=== PATIENT | female | born 1930 | race Caucasian/White ===

== ENCOUNTER 2019-02-09 13:53 | Inpatient (IN) ==
[2019-02-09] MEDS ORDERED: ASPIRIN PO ONE (14:25)
--- NOTE | 2019-02-09 15:00 | Diag Imaging Result Doc PS360 ---
CHEST-2 VIEWS - 02/09/2019 INDICATION: SOB CHF COMPARISON: 02/02/2019 FINDINGS: Stable left-sided pacemaker. Stable cardiomegaly and pulmonary vascular congestion. No infiltrates or edema. There are trace pleural effusions probably similar to prior. IMPRESSION: Cardiomegaly and pulmonary vascular congestion. Trace pleural effusions. Electronically signed by Chris Wu 02/09/2019 2:58 PM
[2019-02-09 15:12] LABS: BASO# 0.01 X1000 (0.0-0.2); BASO% 0.1 % (0.0-0.8); EOS# 0.15 X1000 (0.0-0.7); HEMATOCRIT 37.6 % (37.0-47.0); IMM GRAN# 0.03 X1000 (0.0-0.04); IMM GRAN% 0.4 % (0.0-0.5); LYMPH# 0.82 X1000 (1.2-3.4); MCH 27.8 PG (27-31); MCHC 29.3 g/dL (33-37); MCV 94.9 FL (81-99); MONO# 0.47 X1000 (0.11-0.59); MONO% 6.3 % (1.7-9.3); MPV 8.8 FL (7.4-10.4); NEUT# 5.97 X1000 (1.4-6.5); NEUT% 80.2 % (42.2-75.2); PLT 196 X1000 (130-400); RBC 3.96 XMIL (4.2-5.4); RDW 16.5 % (11.5-14.5); WBC 7.45 X1000 (4.8-10.8)
[2019-02-09 15:26] LABS: INR 1.23; PROTIME 16.2 Seconds (11.0-16.0); PTT 35.7 Seconds (22.3-41.8)
[2019-02-09 15:29] LABS: ALBUMIN 3.9 g/dL (3.5-5.0); CALCIUM 9.2 mg/dL (8.8-10.2); CREATININE 2.3 mg/dL (0.5-0.9); TOTAL BILIRUBIN 0.7 mg/dL (0.20-1.00); TOTAL PROTEIN 6.5 g/dL (6.3-8.3)
[2019-02-09 15:52] LABS: BE 4.7 mmoll (-3.0-3.0); BLOOD TYPE ARTERIAL; HCO3-(ACT) 28.3 mmoll (20.0-26.0); METHB 1.1 % (0.0-1.5); O2(CT) 13.1 mL/dL (15.0-23.0); SAMPLE BLOOD; SAO2 89.3 % (95.0-100.0); THB 10.9 g/dL (11.5-17.4); pH(98.6) 7.38 (7.35-7.45)
[2019-02-09 15:58] LABS: PCO2(98.6) 52 mmHg (35-45)
[2019-02-09 15:59] LABS: MODALITY ROOM AIR; O2HB 85.3 % (95.0-99.0); PO2(98.6) 49 mmHg (60-100)
--- NOTE | 2019-02-09 16:13 | PROVIDER DOCUMENTATION ---
This chart was entered by Lynette Bustamante Scribe, acting as scribe for Amisha Gutierrez CRNP. HPI-General Adult - General Chief Complaint: Shortness of Breath Stated Complaint: LOW O2 Time Seen by Provider: 02/09/19 14:28 Source: patient, family Allergies/Adverse Reactions: Patient Allergies Allergy/AdvReac Type Severity Reaction Status Date / Time No Known Allergies Allergy Verified 02/02/19 15:41 - History of Present Illness -Gen Adult Nature of Presenting Problems: 88 y/o female presents to ED with lethargy, weakness, and cough onset 24 hours ago. Family of pt reports she became more alert en route to ED. Pt denies any other symptoms. Family states pt has been less active since being diagnosed with rib fx last week. Pt is alert and oriented. Location of Pain/Injury: reports: none Pain Radiation: reports: no radiation Quality of Pain: reports: none Severity: reports: mild Onset/Duration: reports: 24 hours ago Timing: reports: still present Context/Activities at Onset: reports: none Modifying Factors: improves with: nothing Associated Symptoms: reports: cough, shortness of breath, weakness, other (lethargy). denies: dizziness, fever/chills Similar Symptoms Previously?: No Recently seen or treated by another doctor?: No Review of Systems - Adult - REVIEW OF SYSTEMS - ADULT Constitutional: reports: other (lethargy). denies: chills, fever Eyes: reports: no symptoms reported Ears, Nose, Mouth & Throat: reports: no symptoms reported Cardiovascular: denies: chest pain, palpitations Respiratory: reports: cough, shortness of breath. denies: wheezing Gastrointestinal: reports: no symptoms reported Genitourinary: reports: no symptoms reported Musculoskeletal: reports: no symptoms reported Integumentary: reports: no symptoms reported Neurological: reports: other (weakness). denies: dizziness/vertigo, seizure Psychiatric: reports: no symptoms reported Endocrine: reports: no symptoms reported Hematologic/Lymphatic: reports: no symptoms reported Allergic/Immunologic: reports: no symptoms reported All Other Systems: Reviewed and Negative Past History - Adult - PAST MEDICAL HISTORY-ADULT Review of Records: reports: Old Records Reviewed, Nursing Assessment Review, Medications Reviewed Major Childhood Illnesses: reports: denies history Cardiovascular: reports: CAD, CHF, HTN, hyperlipidemia, pacemaker Respiratory: reports: COPD Gastrointestinal: reports: denies history Obstetrical/Gynecological: reports: denies history Genitourinary: reports: denies history Musculoskeletal: reports: denies history Neurological: reports: denies history, TIA Psychiatric: reports: anxiety Endocrine/Immune: reports: denies history Other Conditions: reports: denies history - PRIOR SURGERIES/PROCEDURES Surgical/Procedure History: reports: cholecystectomy, cardiac stent, pacemaker, hysterectomy, hernia repair, orthopedic (extremity) (L hand), joint replacement (knee) - IMMUNIZATION STATUS Childhood Immunizations: See Nurse Assessment Flu Vaccine: See Nurse Assessment - FAMILY HISTORY Family History: reviewed, not pertinent - SOCIAL HISTORY Smoking: non-smoker Substance Use: none/never Alcohol Use Frequency: never Living Situation: family Physical Exam-General - PHYSICAL EXAM-ADULT Initial Vital Signs Reviewed: Yes - CONSTITUTIONAL General Appearance: alert, no apparent distress - EYES Eyes: PERRL/EOMI, pink conjunctivae - HEAD, EARS, NOSE, MOUTH & THROAT HENMT: normocephalic/atraumatic, moist mucous membranes, normal ENT inspection. negative: angioedema - NECK Neck: full range of motion, supple, normal inspection - RESPIRATORY Respiratory: normal breath sounds, no respiratory distress, no accessory muscle use, crackles (bilaterally). negative: stridor, wheezing - CARDIOVASCULAR Cardiovascular: normal peripheral pulses, regular rate, rhythm - GASTROINTESTINAL (ABDOMEN) Abdominal Exam: non tender, soft - LYMPHATIC Lymphatic: no adenopathy - MUSCULOSKELETAL Back Exam: normal inspection, no vertebral tenderness Extremity: normal range of motion, non-tender, normal inspection, normal capillary refill, pedal edema (2+ bilaterally). negative: deformity, erythema - SKIN Integumentary: normal color, warm/dry, swelling (2 + pitting edema of bilateral lower extremities) - NEUROLOGIC Neurologic: grossly normal, no motor/sensory deficits - PSYCHIATRIC Psych/Mental Status: normal mood/affect, normal thought content, normal thought process, oriented x 3 Progress - PLAN OF CARE/RESULTS Progress/Plan/Lab Results: Vital Signs - 8 hr 02/09/19 14:17 Temperature 98 F Pulse Rate 78 Respiratory Rate 20 Blood Pressure 130/61 O2 Sat by Pulse Oximetry 92 L Orders Category Date Time Status Cardiac Monitoring DIRECTED Care 02/09/19 14:25 Active Oxygen Therapy- ED Nursing DIRECTED Care 02/09/19 14:25 Active Saline Loc NOW Care 02/09/19 14:25 Active CHEST-2 VIEWS [RAD] Stat Exams 02/09/19 14:25 Ordered CBC WITH ELECTRONIC DIFF [HEME] Stat Lab 02/09/19 14:25 Uncollected CK PROFILE [SP CHEM] Stat Lab 02/09/19 14:25 Uncollected COMPREHENSIVE METABOLIC PANEL [CHEM] Stat Lab 02/09/19 14:25 Uncollected PRO B-NATRIURETIC PEPTIDE Stat Lab 02/09/19 14:25 Uncollected PROTIME WITH INR [COAG] Stat Lab 02/09/19 14:25 Uncollected PTT [COAG] Stat Lab 02/09/19 14:25 Uncollected TROPONIN T Stat Lab 02/09/19 14:25 Uncollected Aspirin Med 02/09/19 14:25 Discontinued 325 mg PO NOW ONE CP/SOB/Palp >45 yrs of Age Stat Oth 02/09/19 14:25 Ordered EKG [EKG] Stat Ther 02/09/19 14:25 Ordered Result Diagrams: 02/09/19 14:58 02/09/19 14:58 - REASSESSMENT Reassessment #1 Time Reassessed: 16:07 (discussed results with pt and family. Family member now stating that pt is on home O2 at 2L, denied O2 use during initial exam. Made aware of need for admission) Reassessment #2 Time Reassessed: 16:12 (discussed pt with Dr Cosby suggests admission and lasix 40mg IV.) - XRAY 1 XRAY Study: Chest Impression: See EMR Report ([facility] - [address], [address], [place] [address] [facility] - [address] [place] [address] Department of Imaging Patient: TERELL CHILDRESS RAD Date: 02/09/19MR#: [id number] : 1930DM Status: PRE ERAcct#: [id number] Age/Sex: 88/FRoom/Bed: Loc: P.ED Ordering Physician: Ollie Cosby MD Family Physician: Radha Luna MD Reason for Procedure: SOB CHF Signed CHEST-2 VIEWS - 02/09/2019 INDICATION: SOB CHF COMPARISON: 02/02/2019 FINDINGS: Stable left-sided pacemaker. Stable cardiomegaly and pulmonary vascular congestion. No infiltrates or edema. There are trace pleural effusions probably similar to prior. IMPRESSION: Cardiomegaly and pulmonary vascular congestion. Trace pleural effusions. Electronically signed by Chris Wu 02/09/2019 2:58 PM 02/09/19 1458 Interpreting Physician: Chris Wu MD Dictated Date/Time: 02/09/19 1458 cc: Ollie Cosby MD; Radha Luna MD) - CONSULTS/PCP/HOSPITALIST Notification #1 *Consult/PCP/Hospitalist*: Dr Renae Time Discussed: 16:04 Consult Disposition: Admit Departure - Departure Date of Disposition Decision: 02/09/19 Time of Disposition Decision: 16:09 DIAGNOSIS: SOB (shortness of breath), Hypoxia, Acute kidney injury Congestive heart failure Qualifiers: Heart failure type: unspecified Heart failure chronicity: acute on chronic Qualified Code(s): I50.9 - Heart failure, unspecified Disposition: ADMITTED INPATIENT 09 Certified Medical Emergency: Emergent Condition: Fair Referrals and Follow-Ups: Radha Luna MD [Primary Care Provider] - - Critical Care Note This patient required my direct & personal management of CC.: No Attestation - Physician/ MARQUES Attestation Patient care was provided by Advanced Practice Provider:: Yes Advanced Practice Provider:: Amisha Gutierrez Advanced Practice Provider documentation review:: The Mid-level provider documentation, treatment plan and medical decision making was reviewed by the physician who agrees with all treatment and medical decision making by the MLP. The physician spent face to face time with patient:: No Advanced Practice Provider documentation review:: Supervising physician onsite and consulted in the evaluation and care of this patient. The physician did not have a face to face encounter with the patient. This chart was documented by the indicated scribe, (Lynette Bustamante, Jorge) and accurately reflects the services I performed and decisions made by me, Amisha Gutierrez CRNP, as attested by the provider's signature.
[2019-02-09] MEDS: LASIX IV ONE (16:16)
[2019-02-09] MEDS ORDERED: NS 1,000 ML IV SCH (17:30)
[2019-02-09] MEDS ORDERED: FLU VACCINE IM ONE (17:54)
--- NOTE | 2019-02-09 18:24 | HISTORY AND PHYSICAL ---
CHIEF COMPLAINT: Shortness of breath. HISTORY OF PRESENT ILLNESS: The patient is a very pleasant 88-year-old female, who actually was seen in the ER approximately a week ago after having fallen. She had a rib fracture at that time. Since going home the family notes that she has been much less active. Normally she has a mildly productive cough each morning with whitish sputum. Over the last 7 days she has had almost no cough. She has not been breathing deeply. Family also notes that she has not really been eating or drinking as well. ALLERGIES: No known drug allergies. MEDICATIONS: I do not have an accurate medication list currently. She has a history of being on cholesterol medicine, diltiazem, lisinopril, pain medication and Coumadin. PAST MEDICAL HISTORY: Significant for known coronary artery disease; atrial fibrillation; bradycardia, status post pacemaker; chronic kidney disease stage 3; obstructive sleep apnea; COPD; hyperlipidemia; chronic pain syndrome; morbid obesity; chronic systolic congestive heart failure; hypertension. PAST SURGICAL HISTORY: She has had a hysterectomy, hernia repair, pacemaker placement, bilateral knee surgeries and back surgery. FAMILY HISTORY: Positive for diabetes and hyperlipidemia. SOCIAL HISTORY: The patient lives at home. She is cared for by her family. She does not currently smoke or drink. REVIEW OF SYSTEMS: As noted above. Positive increased work of breathing, shortness of breath. She has had dyspnea on exertion. She had a syncopal episode approximately a week ago, causing her to fall. She does have some mild memory issues and hard of hearing. Denies any chest pains other than over her rib. Denies fevers, chills, dysuria, frequency, urgency, hesitancy or polyuria. Denies skin rashes, weight loss or weight gain. PHYSICAL EXAMINATION: VITAL SIGNS: Temperature 98 degrees, pulse 72, respiratory rate 17, BP 139/60, saturation 97% on 2 L. GENERAL: The patient is very pleasant. She is lying in the bed with the head elevated approximately 30 degrees. HEENT: Normocephalic. NECK: Supple. CARDIOVASCULAR: Irregular rhythm, rate controlled. CHEST: Decreased breath sounds bilaterally. There are no current crackles or wheezing appreciable. ABDOMEN: Soft, nondistended. EXTREMITIES: Moves all extremities. No edema. NEUROLOGIC: No changes. She is awake, alert, oriented. LABORATORY DATA: CBC normal. BUN 50, creatinine 2.3. BNP 3243. ASSESSMENT: 1. Acute congestive heart failure. BNP is elevated at 3000. Most recent on chart was 1500. 2. Ooaxs-jz-dliqlvz kidney disease secondary to volume depletion. Creatinine is elevated to 2.3 with the most recent being 1.2, seven days ago. 3. Volume depletion. BUN is elevated at 50 with the most recent being 29, seven days ago. 4. Chronic pain. 5. Congestive heart failure, systolic with exacerbation. 6. Hypertension. 7. Atrial fibrillation, currently rate-controlled. PLAN: We are going to continue the patient in the hospital. We are going to place her on IV fluids, as she does appear to be volume-depleted with an elevated BUN and creatinine; however, she also has pulmonary congestion. We are going to use Lasix and follow. We will restart her home medications once available. cc: Balne Garcia MD
--- NOTE | 2019-02-09 20:56 | EKG Report ---
Test Performed on : 02/09/2019 7:03:29 PM Test Reason : CHF SOB Blood Pressure : / mmHG Vent. Rate : 067 BPM Atrial Rate : 250 BPM P-R Int : 000 ms QRS Dur : 098 ms QT Int : 414 ms P-R-T Axes : 000 062 030 degrees QTc Int : 437 ms Atrial fibrillation. with occasional ventricular-paced complexes Low voltage QRS Cannot rule out Anterior infarct , age undetermined Abnormal ECG When compared with ECG of 08-AUG-2015 10:46, Electronic ventricular pacemaker has replaced Atrial fibrillation. Confirmed by Ollie Cosby MD ([id number]) on 02/21/2019 1:51:40 AM
[2019-02-10] MEDS ORDERED: NORCO-10 PO PRN (00:48)
[2019-02-10] MEDS ORDERED: LASIX IV SCH (06:00)
[2019-02-10] MEDS: LASIX IV ONE (06:31)
[2019-02-10 06:44] LABS: URINE SOURCE CLEAN CATCH
[2019-02-10 06:48] LABS: ALBUMIN 3.7 g/dL (3.5-5.0); CALCIUM 9.2 mg/dL (8.8-10.2); CREATININE 1.8 mg/dL (0.5-0.9); MAGNESIUM 2.2 mg/dL (1.5-2.7); POTASSIUM 4.2 mmol/L (3.5-5.1); TOTAL BILIRUBIN 0.7 mg/dL (0.20-1.00); TOTAL PROTEIN 6.4 g/dL (6.3-8.3)
[2019-02-10 07:47] LABS: BILIRUBIN URINE NEGATIVE (NEGATIVE); BLOOD URINE NEGATIVE (NEGATIVE); COLOR YELLOW; GLUCOSE URINE NEGATIVE (NEGATIVE); KETONE URINE NEGATIVE (NEGATIVE); LEUKOCYTES URINE NEGATIVE (NEGATIVE); NITRITE URINE NEGATIVE (NEGATIVE); PROTEIN URINE NEGATIVE (NEGATIVE); SP GRAVITY URINE 1.009; TURBIDITY URINE CLEAR (CLEAR); UR EPITHELIAL CELLS <10 /HPF (<10); URINE BACTERIA NEGATIVE /HPF; URINE RBC <10 /HPF (<10); URINE WBC <10 /HPF (<10); UROBILINOGEN URINE NORMAL (NORMAL)
--- NOTE | 2019-02-10 08:36 | Diag Imaging Result Doc PS360 ---
CHEST-PORTABLE - 02/10/2019 INDICATION: chf COMPARISON: 02/09/2019 FINDINGS: Lung volumes are critically low. There is nonspecific central atelectasis. Otherwise no new infiltrates. Stable cardiomegaly. IMPRESSION: Critically low lung volumes. Electronically signed by Chris Wu 02/10/2019 8:34 AM
[2019-02-10] MEDS ORDERED: NEURONTIN PO PRN (09:02)
[2019-02-10] MEDS: PERCOCET-10 PO PRN ×2 (10:11→22:39)
[2019-02-10] MEDS ORDERED: NS 1,000 ML IV SCH (11:00)
--- NOTE | 2019-02-10 12:54 | PROGRESS NOTE ---
DATE: 02/10/2019 SUBJECTIVE: Patient notes that she still feels terrible. Denies any fevers or chills. Denies chest pain or palpitations. PHYSICAL EXAMINATION: Temperature 97, pulse 63, respiratory rate 18, BP 125/66. General: Patient is in no distress. She is awake, alert. She is pleasant. HEENT: Normocephalic. Neck: Supple. Cardiovascular: Regular rate. Chest: Decreased but equal breath sounds. Minimal crackles. Abdomen: Soft. Extremities: Moves all extremities. ASSESSMENT: 1. Acute on chronic renal failure. Creatinine was 2.3. Baseline is around 1.2. She currently is down to 1.8. 2. Volume depletion, improving. 3. Congestive heart failure, systolic, with exacerbation, improving. BNP is also down. 4. Hypertension. 5. Chronic atrial fibrillation, rate controlled. PLAN: We are going to continue the patient in the hospital. Continue Lasix with intermittent IV fluids. Continue to encourage oral intake and we will follow. cc: Blane Garcia MD
[2019-02-10] MEDS: XANAX PO SCH ×2 (14:27→17:32)
[2019-02-10] MEDS ORDERED: NS 500 ML IV SCH (15:00)
[2019-02-10] MEDS ORDERED: COUMADIN PO SCH (20:00)
[2019-02-10] MEDS ORDERED: LIPITOR PO SCH (21:00)
[2019-02-11 06:08] LABS: INR 1.29; PROTIME 16.8 Seconds (11.0-16.0)
[2019-02-11 06:26] LABS: ALBUMIN 3.4 g/dL (3.5-5.0); CALCIUM 9.1 mg/dL (8.8-10.2); CREATININE 1.4 mg/dL (0.5-0.9); POTASSIUM 4.1 mmol/L (3.5-5.1); TOTAL BILIRUBIN 0.7 mg/dL (0.20-1.00)
--- NOTE | 2019-02-11 07:48 | ECHO REPORT ---
ORDER DATE: 02/10/2019 INTERPRETING PHYSICIAN: Dr. David REQUESTING PHYSICIAN: CLINICAL INDICATIONS: This is an 88-year-old female with CHF. The patient is in atrial fibrillation. Optison was added to optimize visualization of endocardium. M-MODE MEASUREMENTS: Right ventricle: cm. Left ventricle end diastole: 4.2 cm. Left ventricle end systole: 2.4 cm. Posterior wall: 1.2 cm. Interventricular septum: 1.2 cm. Left atrium: 4.3 cm. Aortic root: 2.8 cm. SUMMARY OF 2-DIMENSIONAL IMAGIN. Left ventricular function appears to be mildly decreased in the range of 50% to 55%. The impairment appears to be global. 2. The left atrium is significantly enlarged with an index of 63 mL per m sq of body surface area. 3. Right ventricle appears to be moderately to significantly enlarged. 4. A pacemaker/defibrillator lead is noted within the right ventricle. 5. The right atrium is also moderately enlarged. 6. There is moderately severe degree of tricuspid regurgitation with a pulmonary systolic pressure estimated at 52 mmHg. 7. Mitral valve shows normal opening. Color flow mapping indicates a moderate degree of regurgitation. 8. The pulse wave Doppler of mitral inflow shows a single filling wave. 9. The patient is in atrial fibrillation. 10.The velocity of the mitral annulus is normal. 11.The pulmonary venous flow shows predominance of a diastolic component. 12.Aortic valve shows some sclerosis of the cusps without stenosis. Color flow mapping is unremarkable. 13.Pulmonic valve is unremarkable. 14.There is no pericardial effusion, mass or thrombus. Clinical correlation is recommended. cc: Chase David MD
[2019-02-11] MEDS ORDERED: CARDIZEM CD PO SCH (09:00)
[2019-02-11] MEDS ORDERED: BUSPAR PO SCH (09:00)
[2019-02-11] MEDS ORDERED: CYMBALTA PO SCH (09:00)
[2019-02-11] MEDS ORDERED: LASIX IV SCH (09:00)
[2019-02-11] MEDS ORDERED: ZYLOPRIM PO SCH (09:00)
[2019-02-11] MEDS: XANAX PO SCH ×2 (09:05→13:18)
[2019-02-11 09:38] LABS: ALLEN TEST YES
[2019-02-11 11:53] VITALS: BP 160/87
--- NOTE | 2019-02-11 12:13 | DISCHARGE SUMMARY ---
ADMISSION DATE: 02/09/2019 DISCHARGE DATE: 02/11/2019 PRIMARY CARE PHYSICIAN: Radha Luna MD ADMISSION DIAGNOSES: 1. Acute congestive heart failure. 2. Acute on chronic kidney disease secondary to volume depletion. 3. Volume depletion. 4. Chronic pain. 5. Congestive heart failure, systolic with exacerbation. 6. Hypertension. 7. Atrial fibrillation rate controlled. DISCHARGE DIAGNOSES: 1. Acute on chronic renal failure improved. 2. Congestive heart failure, systolic with exacerbation improved. 3. Hypertension. 4. Chronic atrial fibrillation, rate controlled summary. SUMMARY OF FINDINGS: This is an 88-year-old female who presented to the emergency room previously a week before this admission after having a fall and had a rib fracture at that time. She has been less active since that time according to family and has had a mild productive cough each morning with white sputum. Over the last 7 days, she has had almost no cough. She has not been breathing deeply and not been eating and drinking well. She was found to have a creatinine of 2.3 and her previous 7 days prior was 1.2. Her BNP was elevated at 3000, previously was 1500, so she was admitted. Placed on IV diuresis, restarted her home medications. We did give her some gentle hydration. Her creatinine has improved down to 1.4, now, so it is felt that she can safely be discharged home today with no changes in medication. DISCHARGE MEDICATIONS: We will continue her home medications of allopurinol 300 mg p.o. daily, alprazolam 0.25 mg p.o. t.i.d., atorvastatin 40 mg p.o. at bedtime, buspirone 10 mg p.o. daily, diltiazem 120 mg p.o. daily, duloxetine 40 mg p.o. daily, gabapentin 300 mg p.o. t.i.d., oxycodone 10, 1 p.o. q.8 hours p.r.n., Lasix 40 mg p.o. b.i.d., spironolactone 25 mg p.o. q.12 hours p.r.n., and Coumadin 2 mg on Monday, Monday, , Monday and 4 mg on Monday, Monday, Monday. FOLLOWUP: She will need to follow up with her primary care physician in the next 1 to 2 weeks and call their office for an appointment. TIME SPENT AT DISCHARGE: 35-minute discharge. Dictated by EDWIN Kunz for Blane Garcia MD cc: MD Yesi Berman CRNP Gregory S. Cheatham, MD
[2019-02-11] MEDS: PERCOCET-10 PO PRN (13:17)
[2019-02-11] MEDS ORDERED: COUMADIN PO SCH (20:00)
--- NOTE | 2019-02-12 09:08 | DISCHARGE SUMMARY ---
ADMISSION DATE: 02/09/2019 DISCHARGE DATE: 02/11/2019 HISTORY/HOSPITAL COURSE: The patient was admitted to the hospital with acute congestive heart failure exacerbation with a BNP at 1500, as well as acute on chronic kidney disease. Creatinine was 2.3. It has decreased to 1.4. She was admitted after having been seen 1 week ago with rib fractures. Apparently, had gone home and had been sitting, not taking deep breaths nor drinking well. She was noted to be in acute renal failure, was felt to be volume depleted overall, although she also had an increased amount all vascular congestion in her lungs. This was secondary to her not taking deep breaths due to the pain. She was admitted to the hospital, was given Lasix to jump start her kidneys, as well as IV fluids for her volume depletion. Thankfully, she continued to improve. On discharge, she is awake, alert. She is in no distress. Overall, her symptoms have improved. Creatinine has improved. Breathing has improved. BNP dropped from 3243 to 2770. DISPOSITION: She will be discharged home. FOLLOWUP: She will follow up outpatient with primary care. cc: Blane Garcia MD MTDD
== END 2019-02-11 13:38 | disposition home or self-care (01) ==
LOC: P.ED 13:53 → P.MEDSURG 16:45
PROVIDERS: ATTEND Family Medicine

== ENCOUNTER 2019-04-08 21:13 | Inpatient (IN) ==
[2019-04-08 22:14] LABS: ALLEN TEST YES; BE 14.9 mmoll (-3.0-3.0); BLOOD TYPE ARTERIAL; HCO3-(ACT) 36.4 mmoll (20.0-26.0); METHB 1.1 % (0.0-1.5); O2(CT) 14.8 mL/dL (15.0-23.0); O2HB 91.5 % (95.0-99.0); PO2(98.6) 63 mmHg (60-100); SAMPLE BLOOD; SAO2 94.7 % (95.0-100.0); THB 11.5 g/dL (11.5-17.4); pH(98.6) 7.43 (7.35-7.45)
[2019-04-08 22:17] LABS: PCO2(98.6) 63 mmHg (35-45)
[2019-04-08 22:18] LABS: MODALITY CANNULA
[2019-04-08 22:30] LABS: BASO# 0.02 X1000 (0.0-0.2); BASO% 0.3 % (0.0-0.8); EOS# 0.13 X1000 (0.0-0.7); EOS% 1.7 % (0.0-10.0); HEMATOCRIT 39.2 % (37.0-47.0); HEMOGLOBIN 11.2 g/dL (12.0-16.0); IMM GRAN# 0.08 X1000 (0.0-0.04); LYMPH# 1.21 X1000 (1.2-3.4); LYMPH% 15.8 % (20.5-51.1); MCH 28.2 PG (27-31); MCHC 28.6 g/dL (33-37); MCV 98.7 FL (81-99); MONO# 0.58 X1000 (0.11-0.59); MONO% 7.6 % (1.7-9.3); MPV 9.6 FL (7.4-10.4); NEUT# 5.64 X1000 (1.4-6.5); NEUT% 73.6 % (42.2-75.2); PLT 169 X1000 (130-400); RBC 3.97 XMIL (4.2-5.4); RDW 17.6 % (11.5-14.5); WBC 7.66 X1000 (4.8-10.8)
[2019-04-08 22:50] LABS: ALB/GLOB RATIO 1.3; ALBUMIN 3.5 g/dL (3.5-5.0); CALCIUM 9.7 mg/dL (8.8-10.2); CREATININE 1.4 mg/dL (0.5-0.9); POTASSIUM 4.5 mmol/L (3.5-5.1); TOTAL BILIRUBIN 0.93 mg/dL (0.20-1.00); TOTAL PROTEIN 6.1 g/dL (6.3-8.3)
[2019-04-08] MEDS ORDERED: LASIX IV ONE (23:53)
--- NOTE | 2019-04-09 00:10 | PROVIDER DOCUMENTATION ---
This chart was entered by Alia Cruz Scribe, acting as scribe for Popeye Jasmine MD. HPI-General Adult - General Chief Complaint: SEPSIS ALERT Stated Complaint: RESP DISTRESS Time Seen by Provider: 04/08/19 22:23 Source: patient Allergies/Adverse Reactions: Patient Allergies Allergy/AdvReac Type Severity Reaction Status Date / Time No Known Allergies Allergy Verified 04/09/19 02:17 Home Medications: Home Medication List Medication Instructions Recorded Confirmed Last Taken Type Allopurinol [Zyloprim] 300 mg PO DAILY 02/09/19 04/09/19 Unknown History Alprazolam 0.25 mg PO TID 02/09/19 04/09/19 Unknown History Diltiazem HCl [Cartia Xt] 120 mg PO DAILY 02/09/19 04/09/19 Unknown History Duloxetine HCl 40 mg PO DAILY 02/09/19 04/09/19 Unknown History Furosemide [Lasix] 40 mg PO BID 02/09/19 04/09/19 Unknown History Gabapentin 300 mg PO BID 02/09/19 04/09/19 Unknown History Oxycodone HCl/Acetaminophen 10 - 325 mg PO Q6H PRN PRN 02/09/19 04/09/19 Unknown History [Oxycodone-Acetaminophen 10-325] Warfarin [Coumadin] 4 mg PO DAILY 02/10/19 04/09/19 Unknown History Aspirin [Aspir-Low] 81 mg PO DAILY 04/08/19 04/09/19 Unknown History Atorvastatin Calcium [Lipitor] 40 mg PO DAILY 04/08/19 04/09/19 Unknown History Digoxin 125 mcg PO ORDERED 04/08/19 04/09/19 Unknown History - History of Present Illness -Gen Adult Nature of Presenting Problems: pt is a 88 yr old female presenting via EMS from home, pt family reports pt became altered and combative this evening. EMS reports upon their arrival pt was very combative, striking at them and once in ambulance pt was striking the stroud/cabinets. pt was placed in restraints to protect her. pt was not wearing her home oxygen upon their arrival, Sp02 was 80%, , pt placed on 6lpm o2 via NC and Sp02 improved to 96%, pt returned to normal mental status and was no longer combative. pt now alert. family reports pt hx of COPD was admitted last week at [facility] for same, discharged on 04/05/19 Location of Pain/Injury: reports: none Quality of Pain: reports: none Severity: reports: moderate Onset/Duration: reports: this afternoon Timing: reports: improving Context/Activities at Onset: reports: rest Modifying Factors: improves with: other (oxygen improved symptoms) Associated Symptoms: reports: shortness of breath, other (AMS, combative). denies: fever/chills Similar Symptoms Previously?: Yes Recently seen or treated by another doctor?: Yes Review of Systems - Adult - REVIEW OF SYSTEMS - ADULT Constitutional: reports: abelardo. denies: chills, fever Eyes: reports: no symptoms reported Ears, Nose, Mouth & Throat: reports: no symptoms reported Cardiovascular: denies: chest pain, palpitations, syncope Respiratory: reports: cough, shortness of breath, wheezing Gastrointestinal: denies: abdominal pain, diarrhea, nausea, vomiting Genitourinary: reports: no symptoms reported Musculoskeletal: reports: muscle weakness Integumentary: reports: no symptoms reported Neurological: reports: other (AMS, combative) Psychiatric: reports: no symptoms reported Endocrine: reports: no symptoms reported Hematologic/Lymphatic: reports: no symptoms reported Allergic/Immunologic: reports: no symptoms reported All Other Systems: Reviewed and Negative Past History - Adult - PAST MEDICAL HISTORY-ADULT Review of Records: reports: Old Records Reviewed, Nursing Assessment Review, Medications Reviewed, Social history reviewed & non-contributory. Major Childhood Illnesses: reports: denies history Cardiovascular: reports: CAD, CHF, HTN Respiratory: reports: denies history Gastrointestinal: reports: denies history Obstetrical/Gynecological: reports: denies history Genitourinary: reports: denies history Musculoskeletal: reports: denies history Neurological: reports: denies history, TIA Psychiatric: reports: denies history Endocrine/Immune: reports: denies history Other Conditions: reports: denies history - PRIOR SURGERIES/PROCEDURES Surgical/Procedure History: reports: hysterectomy, hernia repair - IMMUNIZATION STATUS Childhood Immunizations: See Nurse Assessment Flu Vaccine: See Nurse Assessment - FAMILY HISTORY Family History: reviewed, not pertinent - SOCIAL HISTORY Smoking: non-smoker Substance Use: none/never Living Situation: family Physical Exam-General - PHYSICAL EXAM-ADULT Initial Vital Signs Reviewed: Yes - CONSTITUTIONAL General Appearance: no apparent distress, obese - EYES Eyes: PERRL/EOMI - HEAD, EARS, NOSE, MOUTH & THROAT HENMT: normocephalic/atraumatic, moist mucous membranes - NECK Neck: non-tender, full range of motion, supple, normal inspection - RESPIRATORY Respiratory: no respiratory distress, no accessory muscle use, rales (basilar rales) - CARDIOVASCULAR Cardiovascular: normal peripheral pulses, regular rate, rhythm - GASTROINTESTINAL (ABDOMEN) Abdominal Exam: non tender, soft - LYMPHATIC Lymphatic: no adenopathy - MUSCULOSKELETAL Back Exam: normal inspection Extremity: normal range of motion, non-tender, pedal edema (3+ pretibial/ankle pitting edema) - SKIN Integumentary: normal color, normal turgor, warm/dry - NEUROLOGIC Neurologic: grossly normal, no motor/sensory deficits Progress - PLAN OF CARE/RESULTS Progress/Plan/Lab Results: Vital Signs - 8 hr 04/08/19 21:46 Temperature 98.7 F Pulse Rate 64 Respiratory Rate 22 Blood Pressure 140/63 O2 Sat by Pulse Oximetry 93 L Laboratory Results - last 24 hr 04/08/19 04/08/19 04/08/19 22:10 22:10 22:10 WBC RBC Hgb Hct MCV MCH MCHC RDW Std Deviation Plt Count MPV Immature Gran % (Auto) Neut % (Auto) Lymph % (Auto) [place] % (Auto) Eos % (Auto) Baso % (Auto) Immature Gran # (Auto) Neut # (Auto) Lymph # (Auto) [place] # (Auto) Eos # (Auto) Baso # (Auto) Specimen Type ARTERIAL Sample Site R RADIAL pH 7.43 pCO2 63 H* pO2 63 HCO3 36.4 H Base Excess 14.9 H Oxyhemoglobin 91.5 L ABG O2 Sat (Calculated) 14.8 L ABG O2 Saturation 94.7 L ABG Carboxyhemoglobin 2.30 ABG Methemoglobin 1.1 Fredy Test YES A-a O2 Difference 58.0 Total Hemoglobin 11.5 Lactate 1.30 Liter Flow 2.0 Blood Gas Modality CANNULA FiO2 % 28.0 Sodium 138 Potassium 4.5 Chloride 92 L Carbon Dioxide 38 H Anion Gap 8 BUN 30 H Creatinine 1.4 H Estimated GFR/1.73 m2 36 BUN/Creatinine Ratio 21 Glucose 161 H Calculated Osmolality 285 Calcium 9.7 Total Bilirubin 0.93 AST 25 ALT 15 Alkaline Phosphatase 105 H Creatine Kinase 32 Troponin T High Sens [id number]-[id number] Pept Total Protein 6.1 L Albumin 3.5 Globulin 2.6 Albumin/Globulin Ratio 1.3 Plasma Lactate 1.6 04/08/19 04/08/19 04/08/19 22:10 22:10 22:10 WBC 7.66 RBC 3.97 L Hgb 11.2 L Hct 39.2 MCV 98.7 MCH 28.2 MCHC 28.6 L RDW Std Deviation 17.6 H Plt Count 169 MPV 9.6 Immature Gran % (Auto) 1.0 H Neut % (Auto) 73.6 Lymph % (Auto) 15.8 L [place] % (Auto) 7.6 Eos % (Auto) 1.7 Baso % (Auto) 0.3 Immature Gran # (Auto) 0.08 H Neut # (Auto) 5.64 Lymph # (Auto) 1.21 [place] # (Auto) 0.58 Eos # (Auto) 0.13 Baso # (Auto) 0.02 Specimen Type Sample Site pH pCO2 pO2 HCO3 Base Excess Oxyhemoglobin ABG O2 Sat (Calculated) ABG O2 Saturation ABG Carboxyhemoglobin ABG Methemoglobin Fredy Test A-a O2 Difference Total Hemoglobin Lactate Liter Flow Blood Gas Modality FiO2 % Sodium Potassium Chloride Carbon Dioxide Anion Gap BUN Creatinine Estimated GFR/1.73 m2 BUN/Creatinine Ratio Glucose Calculated Osmolality Calcium Total Bilirubin AST ALT Alkaline Phosphatase Creatine Kinase Troponin T High Sens 72 H Cng-U-Ycrhihxfbox Pept 9860 H Total Protein Albumin Globulin Albumin/Globulin Ratio Plasma Lactate Orders Category Date Time Status Cardiac Monitoring NOW Care 04/08/19 22:43 Active IV Insertion NOW Care 04/08/19 22:43 Completed NEWS Score >or=5:Order NEWS Bundle S.O. NOW Care 04/08/19 22:42 Active Notify Provider of NEWS Score NOW Care 04/08/19 22:43 Active Saline Loc NOW Care 04/08/19 21:30 Active CHEST-PORTABLE [RAD] Stat Exams 04/08/19 21:30 Taken ABG [RESP] Routine Lab 04/08/19 22:10 Completed BLOOD CULTURE [BLDCUL] Stat Lab 04/08/19 23:12 Ordered CBC WITH DIFF [HEME] Stat Lab 04/08/19 22:10 Completed CBC WITH DIFF [HEME] Stat Lab 04/08/19 23:12 Ordered CK PROFILE [SP CHEM] Stat Lab 04/08/19 22:10 Completed COMPREHENSIVE METABOLIC PANEL [CHEM] Stat Lab 02/24/20 22:10 Completed LACTATE, PLASMA [CHEM] Lab 04/09/19 01:45 Uncollected LACTATE, PLASMA [CHEM] Lab 04/09/19 04:45 Uncollected LACTATE, PLASMA [CHEM] Stat Lab 04/08/19 22:10 Completed PRO B-NATRIURETIC PEPTIDE Stat Lab 04/08/19 22:10 Completed PROTIME WITH INR [COAG] Stat Lab 04/08/19 23:12 Ordered PTT [COAG] Stat Lab 04/08/19 23:12 Ordered TROPONIN T HIGH SENSITIVITY Stat Lab 04/08/19 22:10 Completed URINALYSIS W/POSS RFLX CULT [URINALYSIS] Stat Lab 04/08/19 22:43 Uncollected Furosemide [Lasix] Med 04/08/19 23:53 Discontinued 60 mg IV NOW ONE O2 Per Protocol Stat Oth 04/08/19 22:43 Active Oxygen Device Stat Oth 04/08/19 21:32 Active Pulse Oximetry Stat Oth 04/08/19 21:30 Active Result Diagrams: 04/08/19 22:10 04/08/19 22:10 - CONSULTS/PCP/HOSPITALIST Notification #1 *Consult/PCP/Hospitalist*: Dr Sterling Time Discussed: 00:01 Reason/Comments: discussed plan of care for pt admit Consult Disposition: Admit Departure - Departure Date of Disposition Decision: 04/09/19 Time of Disposition Decision: 11:41 DIAGNOSIS: Hypoxia Congestive heart failure Qualifiers: Heart failure type: unspecified Heart failure chronicity: acute on chronic Qualified Code(s): I50.9 - Heart failure, unspecified Disposition: ADMITTED INPATIENT 09 Certified Medical Emergency: Emergent Condition: Stable - Critical Care Note This patient required my direct & personal management of CC.: No Attestation - Physician/ MARQUES Attestation Patient care was provided by Advanced Practice Provider:: No The physician spent face to face time with patient:: Yes Advanced Practice Provider documentation review:: Supervising physician onsite and consulted in the evaluation and care of this patient. The physician did have a face to face encounter with the patient. This chart was documented by the indicated scribe, (Alia Cruz, Jorge) and accurately reflects the services I performed and decisions made by me, Popeye Jasmine MD, as attested by the provider's signature.
[2019-04-09] MEDS ORDERED: ZOFRAN IV PRN (00:35)
[2019-04-09] MEDS ORDERED: LASIX IV SCH (00:35)
[2019-04-09 02:46] LABS: URINE SOURCE CATH
[2019-04-09 02:51] LABS: BILIRUBIN URINE NEGATIVE (NEGATIVE); BLOOD URINE NEGATIVE (NEGATIVE); COLOR YELLOW; GLUCOSE URINE NEGATIVE (NEGATIVE); KETONE URINE NEGATIVE (NEGATIVE); LEUKOCYTES URINE NEGATIVE (NEGATIVE); NITRITE URINE NEGATIVE (NEGATIVE); PH URINE 5.5; PROTEIN URINE TRACE mg/dL (NEGATIVE); SP GRAVITY URINE 1.016; TURBIDITY URINE CLEAR (CLEAR); UROBILINOGEN URINE NORMAL (NORMAL)
[2019-04-09 02:52] LABS: UR EPITHELIAL CELLS <10 /HPF (<10); URINE BACTERIA NEGATIVE /HPF; URINE RBC <10 /HPF (<10); URINE WBC <10 /HPF (<10)
[2019-04-09 03:32] LABS: INR 1.97; PROTIME 22.9 Seconds (11.0-16.0)
[2019-04-09 03:34] LABS: PTT 40.9 Seconds (22.3-41.8)
[2019-04-09] MEDS: DUONEB (A & A) INH SCH ×6 (03:50→22:59)
--- NOTE | 2019-04-09 05:35 | Diag Imaging Result Doc PS360 ---
EXAM: CHEST-PORTABLE HISTORY: sob TECHNIQUE: Single view COMPARISON: 01/31/2019 FINDINGS: The lungs are well expanded. The heart remains enlarged. There is vascular distention and small pleural effusions. The patient has a left-sided pacemaker. IMPRESSION: Cardiomegaly with mild pulmonary edema and a small left pleural effusion Electronically signed by Yovani Lambert 04/09/2019 5:33 AM
--- NOTE | 2019-04-09 07:05 | HISTORY AND PHYSICAL ---
PRIMARY CARE PHYSICIAN: Dr. Radha Luna MD CHIEF COMPLAINT: Shortness of breath and confusion. HISTORY OF PRESENTING ILLNESS: An 88-year-old female with history of multiple medical problems including coronary artery disease, atrial fibrillation, chronic kidney disease, COPD, CHF, and hypertension, who presented to emergency department due to patient being combative, confused, and somewhat short of breath. Apparently, patient was admitted to [facility] several weeks ago with similar complaints. She was seen in the ER. She was found to be in heart failure, and also somewhat hypercapnic. She was put on supplemental oxygen and given diuresis with Lasix. However, she will require admission for further management. At the time of my examination, the patient denied any headache, fever, chills, chest pain, or any weight changes. She states she feels better. PAST MEDICAL HISTORY: Includes coronary artery disease, atrial fibrillation, chronic kidney disease stage 3, obstructive sleep apnea, COPD, CHF, systolic dysfunction, and hypertension. PAST SURGICAL HISTORY: Hysterectomy, hernia repair, pacemaker, bilateral knee surgery, and back surgery. ALLERGIES: No known drug allergies. CURRENT MEDICATIONS: 1. Allopurinol 300 mg p.o. daily. 2. Alprazolam 0.25 mg p.o. t.i.d. 3. Diltiazem 120 mg p.o. daily. 4. Duloxetine 40 mg p.o. daily. 5. Gabapentin 300 mg p.o. b.i.d. 6. Percocet 10 one p.o. q.6 hours. 7. Warfarin 4 mg p.o. daily. 8. Lasix 40 mg p.o. b.i.d. 9. Aspirin 81 mg p.o. daily. 10. Atorvastatin 40 mg p.o. daily. 11. Digoxin 125 mcg p.o. daily. SOCIAL HISTORY: She denies any history of smoking, alcohol or illicit drug use. FAMILY HISTORY: No history of coronary disease. REVIEW OF SYSTEMS: Fourteen point review of systems is as in HPI. Other systems negative. PHYSICAL EXAMINATION: GENERAL: Cooperative, friendly female. She is resting more comfortably now. VITAL SIGNS: Temperature 98.7 degrees, pulse 64, respirations 22, and blood pressure 140/63. She is saturating 93% on 2 L. HEENT: Atraumatic and normocephalic. Extraocular movements intact. PERRLA. NECK: No masses. CHEST: Scattered wheezes. CARDIOVASCULAR: Regular rate and rhythm. ABDOMEN: Soft. Obese. Positive bowel sounds. EXTREMITIES: Trace edema. NEUROLOGIC: She is awake, alert, and oriented x2. : No bladder distention. SKIN: Warm. LABORATORIES AND STUDIES: WBC 7.66, hemoglobin 11.2, hematocrit 39.2, and platelets 169,000. Blood gases shows pH of 7.43, pCO2 of 63, sodium 138, potassium 4.5, chloride 92, CO2 38, BUN 30, creatinine is 1.4. Glucose 161. ProBNP is 9860. ASSESSMENT: This is an 88-year-old elderly female with a history of coronary disease, atrial fibrillation, chronic kidney disease, COPD, CHF, and hypertension, who presented to emergency department due to confusion and shortness of breath. She was evaluated in the emergency department. She was found to be in mild heart failure. She was also found to be hypercapnic. Due to these presenting symptoms, she will require admission for further management. 1. Confusion. Altered mental status. 2. Suspected congestive heart failure exacerbation, chronic. 3. Chronic obstructive pulmonary disease with hypercapnia. 4. Atrial fibrillation. 5. Hypertension. PLAN: 1. We will admit patient to medical floor with telemetry. 2. Continue with neuro checks. 3. We will continue with gentle diuresis with Lasix. Consult Cardiology. 4. We will continue with DuoNeb's. We will start BiPAP if she worsens. 5. We will monitor patient on telemetry, and continue the patient on anticoagulation. 6. We will monitor blood pressure closely. 7. Patient is on Coumadin, and this will suffice for DVT prophylaxis. 8. We will continue to follow, reassess and make further recommendations based on patient's clinical course. cc: Ricki Sterling MD
--- NOTE | 2019-04-09 08:41 | EKG Report ---
Test Performed on : 04/09/2019 08:22:59 AM Test Reason : frequent PVCs Blood Pressure : / mmHG Vent. Rate : 074 BPM Atrial Rate : 092 BPM P-R Int : 000 ms QRS Dur : 086 ms QT Int : 390 ms P-R-T Axes : 000 090 216 degrees QTc Int : 432 ms Accelerated Junctional rhythm. with frequent ventricular-paced complexes and with frequent premature ventricular complexes. Rightward axis Low voltage QRS ST & T wave abnormality, consider inferolateral ischemia Abnormal ECG When compared with ECG of 09-FEB-2019 19:03, premature ventricular complexes. are now present Vent. rate has increased BY 7 BPM Confirmed by Rivka Lara MD ([id number]) on 04/09/2019 4:20:16 PM
[2019-04-09] MEDS: ASPIRIN EC PO SCH (09:00)
[2019-04-09] MEDS: XANAX PO SCH ×4 (09:00→20:33)
[2019-04-09] MEDS: CYMBALTA PO SCH ×2 (09:00→11:19)
[2019-04-09] MEDS: PERCOCET-5 PO PRN ×2 (09:02→18:13)
--- NOTE | 2019-04-09 09:40 | PROGRESS NOTE ---
DATE: 04/09/2019 SUBJECTIVE: She is a patient of Dr. Luna. Came in early this morning. An 88-year-old with history of multiple medical problems including coronary artery disease, atrial fibrillation, chronic kidney disease, COPD, congestive heart failure and hypertension, presented to the emergency department, being combative and confused and somewhat short of breath. Apparently, patient was admitted to [facility] several weeks ago with similar complaints, seen in the emergency room, found to be in heart failure and also somewhat hypercapnic. She was put on supplemental oxygen and given diuresis and Lasix. However, we are going to admit her. PAST MEDICAL HISTORY: Includes coronary artery disease, atrial fibrillation, chronic kidney disease stage III, obstructive sleep apnea, COPD, congestive heart failure, systolic dysfunction, hypertension. No known drug allergies, admitted with confusion, altered mental status, suspected congestive heart failure exacerbation, COPD with hypercapnia, COPD exacerbation and atrial fibrillation, hypertension. PHYSICAL EXAMINATION: Vital signs: Temperature 98 degrees, pulse 62, respirations 23, blood pressure 149/70. HEENT: Pupils are equal and round. Lungs: Clear in all lung gilbert. Cardiovascular: Regular rhythm and rate without murmur or S3. Abdomen: Soft. Skin: Warm and dry. Extremities: No pedal edema. Neck: I did not appreciate any distended neck veins. LABORATORY DATA: White count 7660, hematocrit 39, platelet count 169,000. Sodium 138, potassium 4.5, chloride 92, BUN 30, creatinine 1.4. ProBNP was 9860. Albumin 3.5. ProTime is 22, INR is 1.97. Urinalysis unremarkable. Blood gases on arrival, pH was 7.43, pCO2 is 63, PO2 is 63, O2 saturation is 94% on FiO2 of 28%. IMAGING: Chest x-ray, cardiomegaly with mild pulmonary edema, small left pleural effusion. ASSESSMENT AND PLAN: Appears to have pulmonary venous hypertension. Cardiology is involved. We are checking serial troponins. She does have frequent premature ventricular contractions. She seems to be in sinus rhythm at this time. Looking back to see if we have an old echocardiogram, I see we did a pulmonary arteriogram. This was back in October 2012, had cardiomegaly, coronary atherosclerosis, scarring or atelectasis in the right upper lobe at that time, possible left adrenal enlargement. She had an echocardiogram done on 02/10/2019, left ventricle appears to be at that time mildly decreased in the range of 50 to 55 percent ejection fraction and impairment appears to be global. The left atrium is significantly enlarged with an index of 63 mL/m2. Right ventricle appeared to be moderately significantly enlarged. She has a pacemaker/defibrillator noted in the right ventricle. Right atrium also moderately enlarged. Moderately severe degree of tricuspid regurgitation, pulmonic systolic pressure was 52 mmHg and aortic valve, there was some sclerosis, otherwise unremarkable. REVIEW OF HER ORDERS: She is on Zyloprim 300 mg a day, Xanax 0.25 mg p.o. t.i.d., aspirin 81 mg a day, Lipitor 40 mg a day, Lanoxin 125 mcg p.o. I think she takes that maybe 4 days a week. She is on Coumadin 4 mg a day, Lasix started at 40 mg IV q.12, Cymbalta 40 mg a day, Cardizem CD 120 mg daily. Note that her ProTime was 22.9 with an INR of 1.97. cc: Fredy Foote MD
[2019-04-09] MEDS: NEURONTIN PO SCH ×2 (10:36→20:33)
[2019-04-09 10:55] LABS: MAGNESIUM 2.4 mg/dL (1.5-2.7)
[2019-04-09] MEDS: LIPITOR PO SCH ×2 (11:19→12:13)
[2019-04-09] MEDS: ZYLOPRIM PO SCH ×2 (11:19→12:13)
[2019-04-09 12:06] LABS: T4 4.56 ug/dL (4.60-12.00); TSH 2.74 uIUmL (0.27-4.20)
[2019-04-09] MEDS: CARDIZEM CD PO SCH (12:13)
[2019-04-09] MEDS: LASIX IV SCH ×2 (12:13→23:46)
--- NOTE | 2019-04-09 15:17 | CARDIOLOGY CONSULTATION ---
DATE: 04/09/2019 REQUESTING PHYSICIAN: Consultation requested by hospitalist service. REASON FOR CONSULTATION: Edema, confusion. HISTORY: Ms. Saeed is a pleasant, 88-year-old, female who is a patient of Dr. Luna and also a patient of mine who presented to the ER last night at about 9:30 p.m. with complaints that she had become agitated, combative, and had to be restrained. The patient had been noted to have increasing swelling of the lower extremities. A chest x-ray was done on admission that showed cardiomegaly with mild pulmonary edema. ProBNP level was checked. It was 9865 pg/mL. Her BUN was 30, her creatinine was 1.4. The patient was given Lasix and oxygen. Initial arterial blood gas showed a pO2 of 63 and a CO2 of 63. PH was 7.43. The patient denies having any chest pain. Her troponins have been checked. They are minimally elevated 72 and 66 ng/L. That is in the moroe zone. A C-reactive protein was 30.71 mg/L. A sedimentation rate is 52 mm per hour. EKG done in the ER this morning at 8:22 shows what appears to be V-paced rhythm with PACs. The patient has a past history of diastolic heart failure. We have seen her at the office for this condition and treated her with spironolactone which, unfortunately, led to hyperkalemia and it had to be discontinued. She has a history of hypertension. She has hyperlipidemia. She has permanent atrial fibrillation and sick sinus syndrome. She received a permanent pacemaker. She has coronary heart disease with stenosis of the first diagonal branch of LAD and 40% right coronary artery. She has chronic kidney disease. SURGICAL HISTORY: Pacemaker implantation on 08/07/2014. This is a single-chamber. She has had back surgery, hiatal hernia surgery, cholecystectomy, knee replacement, kidney stone surgery. SOCIAL HISTORY: She is a . She has 3 children. FAMILY HISTORY: Arrhythmia in the son. REVIEW OF SYSTEMS: She has had chronic swelling of the lower extremities. We had referred her to Dr. Brayan Langston who evaluated her. Unfortunately, he did not find anything that he could help her with. On examination of ultrasound of the legs, they noted that she appeared to have significant central venous hypertension. Review of systems, other than what I have already reported, is really noncontributory. She is very limited to ambulate. She uses oxygen at home. In addition, she is obese with a body mass index of 43.9 according to our last office visit. In the hospital, 45.8. HOME MEDICATIONS: At this time include the following: She is on allopurinol 300 mg daily, alprazolam 0.25 mg 3 times a day, aspirin 81 daily, atorvastatin 40 mg daily, digoxin 0.125 mg daily, diltiazem 120 mg daily, duloxetine 40 mg daily, furosemide 40 mg twice a day, gabapentin 300 mg twice a day, oxycodone 10/325 every 6 hours. PHYSICAL EXAMINATION: Blood pressure is 137/51, pulse 80 per minute, temperature 97.0 degrees, respirations 18. She is awake. She is very cooperative and pleasant at this time. She is not agitated. She is eating her dinner. HEENT: Unremarkable. Chest sounds are relatively clear to auscultation and percussion. I do not hear rales. Heart sounds are regular and rhythmic. Soft systolic murmur over the aortic area. Abdomen is quite obese. Extremities show chronic stasis dermatitis in both legs. Pulses are diminished. Neurological: Nonfocal. Moves 4 extremities. ADDITIONAL BLOOD WORK: Sodium 138, potassium 4.5, BUN 30, creatinine 1.4. The albumin is 3.5. Folate 15. TSH 2.7. IMPRESSION: 1. Patient who presents with delirium/agitation. The reason for this is unclear; however, it has resolved. Whether this was due to hypercapnia associated with early sepsis remains to be elucidated. 2. Chronic obstructive pulmonary disease. 3. Permanent atrial fibrillation. 4. Status post VVI pacemaker. 5. Chronic diastolic heart failure. 6. History of moderate coronary artery disease. 7. Chronic kidney disease. 8. Morbid obesity. 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 RECOMMENDATION: At this time, we will keep her on Lasix 80 mg twice a day. We will obtain a followup echocardiogram and ultrasound of the legs. We will monitor her course. Of note, an echocardiogram was done recently, on February 10, and it showed an ejection fraction of 50 to 55 percent with significantly enlarged left atrium and no aortic stenosis. Further advice will be forthcoming. Thank you for the opportunity to participate in her evaluation. cc: Chase David MD
[2019-04-09] MEDS: COUMADIN PO SCH (20:33)
[2019-04-10] MEDS: PERCOCET-5 PO PRN ×3 (02:14→22:42)
[2019-04-10] MEDS: DUONEB (A & A) INH SCH ×6 (03:37→23:40)
--- NOTE | 2019-04-10 07:20 | EKG Report ---
Test Performed on : 04/10/2019 07:07:57 AM Test Reason : dyspnea Blood Pressure : / mmHG Vent. Rate : 075 BPM Atrial Rate : 288 BPM P-R Int : 000 ms QRS Dur : 086 ms QT Int : 332 ms P-R-T Axes : 000 069 242 degrees QTc Int : 370 ms Atrial fibrillation. with frequent ventricular-paced complexes and with premature ventricular or aber rantly conducted complexes. Low voltage QRS T wave abnormality, consider inferior ischemia Abnormal ECG When compared with ECG of 09-APR-2019 08:22, premature ventricular complexes. are no longer present Confirmed by Rivka Lara MD ([id number]) on 04/10/2019 8:15:44 AM
[2019-04-10 07:50] LABS: INR 1.69; PROTIME 20.2 Seconds (11.0-16.0)
[2019-04-10] MEDS: NEURONTIN PO SCH (08:08)
[2019-04-10] MEDS: XANAX PO SCH ×2 (08:08→14:42)
[2019-04-10] MEDS: ASPIRIN EC PO SCH (08:08)
[2019-04-10] MEDS: LANOXIN PO SCH (08:09)
[2019-04-10] MEDS: LIPITOR PO SCH (08:09)
[2019-04-10] MEDS: CYMBALTA PO SCH (08:09)
[2019-04-10] MEDS: CARDIZEM CD PO SCH (08:10)
[2019-04-10] MEDS: ZYLOPRIM PO SCH (08:10)
[2019-04-10 08:16] LABS: CALCIUM 9.1 mg/dL (8.8-10.2); CREATININE 1.5 mg/dL (0.5-0.9); MAGNESIUM 2.1 mg/dL (1.5-2.7); POTASSIUM 4.2 mmol/L (3.5-5.1)
--- NOTE | 2019-04-10 10:33 | PROGRESS NOTE ---
DATE: 04/10/2019 SUBJECTIVE: Ms. Saeed came in with shortness of breath. She is a patient of Dr. Radha Luna, has a history of multiple medical problems including coronary artery disease, atrial fibrillation, chronic kidney disease, COPD, congestive heart failure, hypertension, presented to the emergency room after being combative and confused and somewhat short of breath. Apparently admitted to [facility] several weeks ago with similar complaints, seen in the emergency room, had heart failure and also somewhat hypercapnic, supplemental oxygen was started, started diuresis. However, she will require further management. She is saying that she is having visual hallucinations at night. She was sleeping better though. PAST MEDICAL HISTORY: Again, coronary artery disease, atrial fibrillation, chronic kidney disease stage 3, obstructive sleep apnea, COPD, congestive heart failure, systolic dysfunction, and hypertension. Her mental status is improved. I think this is largely due to CO2 retention, hypoxemia, and she has underlying congestive heart failure which is chronic, so acute-on- chronic. I think she is doing better volume status-estevez, moving air well. She has COPD and chronic hypercapnia. She has underlying atrial fibrillation, rate is controlled. Blood pressure appears good. REVIEW OF HER ORDERS: She is on Coumadin 4 mg at bedtime. She is getting DuoNebs, allopurinol 300 mg a day, Xanax 0.25 mg 3 times a day, aspirin 81 mg a day, Lipitor 40 mg a day, digoxin 125 mcg p.o. every other day, Cardizem CD 120 mg a day, Cymbalta 40 mg a day, Neurontin 300 mg b.i.d., and she gets oxycodone 5 mg every 8 hours p.r.n. To review, her prothrombin time was 22, this morning was 20. cc: Fredy Foote MD
[2019-04-10] MEDS: LASIX IV SCH (11:08)
--- NOTE | 2019-04-10 19:23 | Extremity Venous Study ---
PROCEDURE NAME: Venous U/S Bilateral Legs - 04/09/2019 BILATERAL LOWER EXTREMITY VENOUS DUPLEX STUDY: REFERRING PROVIDER: NAHUM Wolf. READING PHYSICIAN: Janusz Reyes MD. BLAST FURNACE CHECKER: Eliud Benites RDCS, T. INDICATION: Leg pain and swelling. There is a comparison study dated 07/04/2017. FINDINGS: The deep and superficial veins of both lower extremities were imaged throughout their course. They are compressible, patent, and without thrombus. INTERPRETATION: No DVT or SVT of either lower extremity. This is unchanged from the prior study on 07/04/2017. cc: MD Claribel Chandler PA
--- NOTE | 2019-04-10 19:45 | CARDIOLOGY PROGRESS NOTE ---
DATE: 04/10/2019 CHIEF COMPLAINT: Confusion, shortness of breath. SUBJECTIVE: Ms. Saeed is still a little confused today. She appears to be more so than last night. She denies having any chest pain. She definitely seems to have asterixis. OBJECTIVE: Vital Signs: Blood pressure is 137/59, temperature 97.7, pulse 68, respirations 16. General: She is awake and follows some simple commands; however, she definitely seems to be confused. HEENT: Normal. Chest: Diminished breath sounds diffusely. Cardiovascular: Heart sounds are irregular. Abdomen: Obese. Extremities: Show brawny edema, redness, 1+ diffusely. Pulses diminished. Neurologic: Shakiness, asterixis. BLOOD WORK: Today INR is 1.69. IMPRESSION: 1. Patient who presented with confusion. This appears to be metabolic encephalopathy, and carbon dioxide retention appears to be the most likely reason for it. 2. Chronic obstructive pulmonary disease. 3. Permanent atrial fibrillation. 4. Chronic diastolic heart failure. 5. History of moderate coronary disease. 6. Chronic kidney disease. 7. Morbid obesity. RECOMMENDATIONS: At this time I would suggest to try to optimize her anticoagulation. She is presently taking warfarin. Her INR is drifting towards normal. This needs to be corrected. I have discussed the case with Dr. Asher Hopson, who is going to see her today in consultation. Probably we should avoid the tranquilizing medications or sedatives that she is taking at the present time, particularly since we are concerned about CO2 retention. We will see what Dr. Hopson has to say, and then we will take it from there. cc: Chase David MD
[2019-04-10] MEDS: COUMADIN PO SCH (21:56)
--- NOTE | 2019-04-10 23:23 | PULMONOLOGY CONSULTATION ---
DATE: 04/10/2019 REQUESTING CLINICIAN: Dr. Chase David. REASON FOR CONSULTATION: Hypercapnic respiratory failure. HISTORY OF PRESENT ILLNESS: Ms. Saeed is an 88-year-old white female, never- smoker, with morbid obesity, chronic pain and anxiety, with prior diagnosis of obstructive sleep apnea without compliance with her CPAP machine. She is followed by Cardiology for diastolic heart failure. She has been admitted to the hospital 2 times in the last few weeks with dyspnea, and delirium. She currently is arousable to alert, but drifts back to sleep. She does answer questions appropriately. She reports she did not like the CPAP mask and therefore did not wear it. The patient's medications from home were reviewed and include several sedatives/neuroleptic medications including alprazolam, buspirone, gabapentin and oxycodone. PAST MEDICAL HISTORY: 1. Obstructive sleep apnea with noncompliance. 2. Diastolic heart failure. 3. Dyslipidemia. 4. Limited coronary artery disease. 5. Status post pacemaker placement. 6. History of hiatal hernia with correction. 7. Status post knee replacement. 8. Status post cholecystectomy. 9. History of back surgery. 10. Nephrolithiasis. SOCIAL HISTORY: The patient is a never-smoker by report. No alcohol use. REVIEW OF SYSTEMS: Limited due to current hypersomnolent status. PHYSICAL EXAMINATION: Physical exam reveals an obese white female with a BMI of 46. Blood pressure 137/59, heart rate 68, respiratory rate 18, oxygen saturation 95%.HEENT: Pupils are equal. Oropharynx appears clear. Neck is supple. Chest reveals good air entry bilaterally. Cardiac exam: Irregular rhythm. Normal S1, normal S2. Abdomen is obese and soft. Extremities reveal chronic edema with venous stasis changes. DIAGNOSTIC DATA: Chest x-ray reveals enlarged heart, mild vascular distention with small effusions. LABORATORY DATA: Arterial blood gas on the evening of 04/08/2019: PH 7.43, pCO2 of 63, pO2 of 63 on 2 L per nasal cannula. IMPRESSION: An 88-year-old with: 1. Delirium. 2. Obstructive sleep apnea with noncompliance to continuous positive airway pressure device. 3. Diastolic dysfunction with diastolic heart failure. 4. 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 DISCUSSION: An 88-year-old with problems outlined above. She has multiple medications which might affect her ventilatory drive and her sensorium. She is likely sensitive to these medications with her underlying obstructive sleep apnea. It would be prudent for her to reattempt her CPAP device if possible, or repeat a CPAP study. I would also recommend titrating down her neurotrophic medications if possible. I have already taken the liberty of decreasing her alprazolam from 0.25 mg t.i.d. to 0.125 mg t.i.d. PLAN: 1. Attempt BiPAP this evening. 2. Continue supplemental oxygen as needed for hypoxemia. 3. Wean neurotrophic medications as tolerated. cc: Asher Hopson MD MTDD
[2019-04-11] MEDS: LASIX IV SCH ×2 (01:24→12:35)
[2019-04-11] MEDS: XANAX PO SCH ×3 (01:26→15:32)
[2019-04-11] MEDS: NEURONTIN PO SCH ×3 (01:27→23:27)
[2019-04-11] MEDS: DUONEB (A & A) INH SCH ×5 (03:50→20:14)
[2019-04-11 04:18] LABS: ALLEN TEST YES; BLOOD TYPE ARTERIAL; HCO3-(ACT) 38.1 mmoll (20.0-26.0); METHB 0.7 % (0.0-1.5); O2(CT) 17.8 mL/dL (15.0-23.0); O2HB 94.5 % (95.0-99.0); PO2(98.6) 76 mmHg (60-100); SAMPLE BLOOD; SAO2 97.2 % (95.0-100.0); THB 13.4 g/dL (11.5-17.4); pH(98.6) 7.46 (7.35-7.45)
[2019-04-11 04:29] LABS: MODALITY CANNULA
[2019-04-11 04:30] LABS: PCO2(98.6) 62 mmHg (35-45)
[2019-04-11] MEDS: PERCOCET-5 PO PRN ×3 (06:25→23:27)
[2019-04-11 07:21] LABS: CALCIUM 9.4 mg/dL (8.8-10.2); CREATININE 1.2 mg/dL (0.5-0.9); MAGNESIUM 2.3 mg/dL (1.5-2.7); POTASSIUM 3.8 mmol/L (3.5-5.1)
--- NOTE | 2019-04-11 09:15 | PROGRESS NOTE ---
DATE: 04/11/2019 SUBJECTIVE: Ms. Saeed is better. She feels better. She is breathing better. She has not gotten up out of bed and walked much. OBJECTIVE: Temperature 98.1 degrees, pulse 60, respirations 20, blood pressure 140/49. Pupils are equal and round. Lungs are clear in all lung gilbert. Cardiovascular Examination: Regular rhythm and rate without murmur or S3. Abdomen is soft. Skin is warm and dry. Weight 238 pounds. Her weight has come down about a pound from yesterday. ASSESSMENT AND PLAN: 1. Presented with delirium. Blood gas on arrival to the hospital was pH of 7.43, pCO2 of 63, PO2 of 63 on 2 L nasal cannula. 2. She has obstructive sleep apnea, noncompliant to continuous positive airway pressure device. 3. Diastolic dysfunction, diastolic heart failure. 4. Chronic hypercapnic, chronic hypoxemic respiratory failure. 5. Multiple medications might affect her ventilatory drive and her sensorium, and likely sensitive to these medications with her underlying obstructive sleep apnea. It would be prudent to try and attempt her CPAP device if possible, so requested she titrate her neuroleptic medications. Decreased alprazolam from 0.25 mg three times a day to 0.125 mg three times a day. Make sure she is ambulating and get physical therapy involved. Possibly could go home tomorrow. Note, she is on Coumadin. Prothrombin time, INR is 1.69. cc: Fredy Foote MD
[2019-04-11] MEDS: LIPITOR PO SCH (10:08)
[2019-04-11] MEDS: ASPIRIN EC PO SCH (10:09)
[2019-04-11] MEDS: CYMBALTA PO SCH (10:09)
[2019-04-11] MEDS: ZYLOPRIM PO SCH (10:09)
[2019-04-11] MEDS: CARDIZEM CD PO SCH (10:09)
[2019-04-11] MEDS ORDERED: COUMADIN PO ONE (15:14)
--- NOTE | 2019-04-11 15:50 | PROGRESS NOTE ---
DATE: 04/11/2019 SUBJECTIVE: Patient denies shortness of breath or chest discomfort. She reports feeling better. Family visiting indicates that she is near her baseline. OBJECTIVE: Vital Signs: Blood pressure 127/49, heart rate 63, oxygen saturation 96% on nasal cannula oxygen. Neck: Jugular venous distention suggests mild elevation of central venous pressure. Chest: Auscultation of the chest reveals diminished breath sounds at bases bilaterally. Cardiac: Reveals a regular rate and rhythm without appreciable murmur or gallop. Extremities: Demonstrate 1+ pretibial edema with chronic stasis changes and brawny skin. LABORATORY DATA: Includes sodium 139, potassium 3.8, chloride 93, carbon dioxide 38, BUN 26, creatinine 1.2, glucose 129. IMPRESSION: 1. Recent encephalopathy probably related to hypercapnia related to obstructive sleep apnea. 2. Acute on chronic congestive heart failure with preserved left ventricular ejection fraction probably due to diastolic heart failure and right-sided heart failure related to chronic obstructive pulmonary disease, obstructive sleep apnea and obesity. 3. Permanent atrial fibrillation. 4. Moderate coronary disease. Patient continues without angina. 5. Chronic kidney disease. 6. Obesity. RECOMMENDATIONS: 1. Give additional warfarin to try and move INR into therapeutic range. 2. Continue diuresis with IV Lasix another 24 hours and reassess. cc: Geovanni Foote MD
--- NOTE | 2019-04-11 21:37 | PULMONOLOGY PROGRESS NOTE ---
DATE: 04/11/2019 SUBJECTIVE: The patient is awake, alert, and conversant. She is not hypersomnolent like she was last evening. CPAP/BiPAP was requested last night, but patient refused to wear it. OBJECTIVE: Vital Signs: The patient has been afebrile for the last 24 hours. Blood pressure 138/52, heart rate 66, respiratory rate 18, oxygen saturation 97%. HEENT: Pupils are equal and reactive. Oropharynx appears clear. Neck: Supple. Chest: Shallow breath sounds bilaterally without wheezing or rhonchi. Cardiac: S1, S2. Abdomen: Obese and soft. Extremities: Without edema. LABORATORIES: Arterial blood gas reveals a pH 7.46, pCO2 of 62, pO2 of 76. Sodium 139, potassium 3.8, chloride 93, bicarbonate 38, BUN 26, creatinine 1.2. IMPRESSION: An 88-year-old with: 1. Delirium. This appears to be improved today. I did decrease her alprazolam yesterday. 2. Obstructive sleep apnea. The patient will not comply with CPAP/BiPAP device. 3. Diastolic dysfunction with diastolic heart failure. 4. 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 DISCUSSION: An 88-year-old with problems outlined above. The patient is on multiple medications which may affect her sensorium and worsen her sleep apnea. It is recommended that her sedative hypnotics be minimized if possible, and to use the lowest possible dose of any pain medication. PLAN: 1. Continue supplemental oxygen. The patient refuses CPAP and BiPAP. 2. Minimize neurotrophic medications. 3. No additional recommendations from a pulmonary standpoint. cc: Asher Hopson MD
[2019-04-11] MEDS: COUMADIN PO SCH (23:27)
[2019-04-12] MEDS: DUONEB (A & A) INH SCH ×7 (00:01→23:45)
[2019-04-12] MEDS: LASIX IV SCH ×2 (02:20→12:18)
[2019-04-12] MEDS: TYLENOL PO PRN (03:17)
[2019-04-12] MEDS: XANAX PO SCH ×4 (05:21→21:29)
[2019-04-12] MEDS: PERCOCET-5 PO PRN (07:11)
[2019-04-12] MEDS: NEURONTIN PO SCH ×2 (09:15→21:29)
[2019-04-12] MEDS: LANOXIN PO SCH (09:15)
[2019-04-12] MEDS: LIPITOR PO SCH (09:16)
[2019-04-12] MEDS: CYMBALTA PO SCH (09:16)
[2019-04-12] MEDS: ZYLOPRIM PO SCH (09:16)
[2019-04-12] MEDS: ASPIRIN EC PO SCH (09:17)
[2019-04-12] MEDS: CARDIZEM CD PO SCH (09:17)
--- NOTE | 2019-04-12 09:47 | PROGRESS NOTE ---
DATE: 04/12/2019 Ms. Saeed was sleeping. Her daughter was at the bedside. OBJECTIVE: Vital Signs: She has remained afebrile, temperature 98 degrees, pulse 90, respirations 18, blood pressure 137/54/ HEENT: Pupils are equal and round. Lungs: Are clear in all lung gilbert. Cardiovascular: Regular rhythm and rate without murmur or S3. Abdomen: Is soft. Skin: Is warm and dry. ASSESSMENT AND PLAN: 1. Came in with delirium, this is improved. We decreased her alprazolam. 2. Obstructive sleep apnea. The patient does not comply with CPAP or BiPAP device. 3. Diastolic dysfunction, diastolic heart failure. 4. Chronic hypercapnia and chronic hypoxemic respiratory failure. Continue present medications. We are going to need to get her up and make sure she is ambulating. Physical therapy is involved. I will get occupational therapy as well and hopefully we can go home on Monday. REVIEW OF HER ORDERS: I do not see any change. REVIEW OF LABS: Note the creatinine has come down from 1.5 to 1.2. cc: Fredy Foote MD
[2019-04-12 17:30] LABS: INR 1.78; PROTIME 21.1 Seconds (11.0-16.0)
--- NOTE | 2019-04-12 18:53 | PULMONOLOGY PROGRESS NOTE ---
DATE: 04/12/2019 SUBJECTIVE: The patient is sitting up at the bedside in the chair. She has no complaints. DISCHARGE VITAL SIGNS: Blood pressure is 137/54 with a heart rate of 76, respirations are 20, temperature is 98 degrees oral with O2 saturations 97-99% on 2 L nasal cannula. OBJECTIVE: HEENT: Pupils are equal, round, react to light. EOMs are intact. Sclerae anicteric. HEENT: Head is normocephalic, atraumatic. Mucous membranes are moist. Neck: Supple with trachea midline. Cardiovascular: Regular rate and rhythm. S1 and S2 are appreciated. She has bilateral lower extremity edema. Calves are nontender with peripheral pulses palpable x4 extremities. Pulmonary: Breath sounds are clear with no increased work of breathing noted. Chest rises and falls symmetric with respiration. Chest wall is nontender to palpation. Gastrointestinal: Abdomen is soft, nontender, nondistended with bowel sounds in all 4 quadrants. Skin is warm and dry. She does have chronic changes. Bilateral lower extremities: Reveal venous stasis changes. LABORATORY DATA: No labs today. ASSESSMENT & PLAN This is an 88-year-old female with: 1. Delirium. This is improved today. 2. Obstructive sleep apnea. The patient continues to refuse CPAP or BiPAP device. 3. Diastolic dysfunction with diastolic heart failure. Cardiology is following. 4. 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 We will continue with supplemental oxygen. 5. Minimize neurotrophic medications. Dictated by EDWIN Lunsford for Asher Hopson MD cc: EDWIN Lunsford MD [facility]
[2019-04-12] MEDS: COUMADIN PO SCH (21:29)
[2019-04-13] MEDS: PERCOCET-5 PO PRN ×3 (00:22→21:41)
[2019-04-13] MEDS: LASIX IV SCH ×2 (00:33→18:15)
[2019-04-13] MEDS ORDERED: MORPHINE IV ONE (01:51)
[2019-04-13] MEDS: DUONEB (A & A) INH SCH ×6 (03:48→23:35)
[2019-04-13 08:07] LABS: INR 1.86; PROTIME 21.8 Seconds (11.0-16.0)
[2019-04-13 08:19] LABS: CALCIUM 9.6 mg/dL (8.8-10.2); CREATININE 1.2 mg/dL (0.5-0.9); POTASSIUM 4.1 mmol/L (3.5-5.1)
--- NOTE | 2019-04-13 09:34 | PROGRESS NOTE ---
DATE: 04/13/2019 SUBJECTIVE: Ms. Saeed was admitted on , came in with shortness of breath, confusion. She is a patient Dr. Luna. An 88-year-old with history of multiple medical problems including coronary artery disease, atrial fibrillation, chronic kidney disease, COPD, congestive heart failure and hypertension, presented to the emergency department after being combative and confused and somewhat short of breath. The patient was admitted to [facility] several weeks ago with similar complaints, seen in the emergency room, found to be in heart failure, also somewhat hypercapnic, put on supplemental oxygen, given diuresis. However, she will require admission. She slept a good portion of the day yesterday. Her past medical history again includes coronary artery disease, atrial fibrillation, chronic kidney disease stage III, obstructive sleep apnea, COPD, congestive heart failure, systolic dysfunction and hypertension, but her main problem when she came in was altered mental status which is improved. Pulmonary is following. She has obstructive sleep apnea, refuses to use her CPAP and BiPAP. Diastolic dysfunction, diastolic heart failure, chronic hypercapnic, chronic hypoxemic respiratory failure, and trying to minimize neurotrophic medications. She is upset that she is not getting more pain medicine and she wants to go home. I told her we need to make sure she can ambulate and walk around. CURRENT REGIMEN: She is on Coumadin 4 mg at bedtime, allopurinol 300 mg daily, Xanax 0.125 mg which I believe she is taking 3 times a day, we have cut that down in half the dosage. Aspirin 81 mg a day, Lipitor 40 mg a day, digoxin 125 mcg p.o. which I think she takes on Sundays, Mondays, Wednesdays, Fridays and Saturdays, diltiazem CD 120 mg a day, Cymbalta 40 mg a day, Lasix 80 mg IV every 12 hours, Neurontin 300 mg b.i.d., and then she has her oxycodone 5 mg every 8 hours p.r.n. LABORATORY DATA: From today. Electrolytes: Sodium 138, potassium 4.1, chloride 92, BUN 26, creatinine 1.2 which has come down from 1.5. PLAN: Continue present regimen. We have Physical Therapy and Occupational Therapy involved. cc: Fredy Foote MD
[2019-04-13] MEDS: CYMBALTA PO SCH (10:49)
[2019-04-13] MEDS: XANAX PO SCH ×3 (10:49→21:40)
[2019-04-13] MEDS: CARDIZEM CD PO SCH (10:49)
[2019-04-13] MEDS: LIPITOR PO SCH (10:50)
[2019-04-13] MEDS: LANOXIN PO SCH (10:50)
[2019-04-13] MEDS: ASPIRIN EC PO SCH (10:50)
[2019-04-13] MEDS: NEURONTIN PO SCH ×2 (10:50→21:40)
[2019-04-13] MEDS: ZYLOPRIM PO SCH (10:53)
--- NOTE | 2019-04-13 14:26 | CARDIOLOGY PROGRESS NOTE ---
DATE: 04/13/2019 SUBJECTIVE: Ms. Saeed reports she is doing well. She has no pain complaints today. Breathing has improved. PHYSICAL EXAMINATION: Afebrile. Heart rate is 79, blood pressure 142/59. Her I's and O's are negative a total of 3.6 L during the hospitalization with 2 voids not measured.General: No acute distress. Cardiovascular: She sounds to be in an irregularly irregular rhythm. She has no murmurs. She has marked bilateral lower extremity edema with chronic venous stasis changes. Chest: Sounds clear with poor inspiratory effort. Abdomen: Is soft, nontender, nondistended. She has no obvious organomegaly. PERTINENT DATA: INR is 1.8. Sodium 138, potassium 4.1, BUN 26, creatinine is 1.20. ASSESSMENT: Ms. Saeed is an 88-year-old female with diastolic and likely right-sided heart failure as well as chronic kidney disease. PLAN: She continues to diurese. We will check an INR in the morning. She is in rate controlled atrial fibrillation. Dr. David will be back to see the patient on Monday. cc: Emmanuel Pearl MD
--- NOTE | 2019-04-13 17:42 | PULMONOLOGY PROGRESS NOTE ---
DATE: 04/13/2019 SUBJECTIVE: Ms. Saeed is sitting up in the bedside chair. She has no complaints. OBJECTIVE: Vital Signs: Blood pressure is 108/76 with a heart rate of 90, respirations 20, temperature is 98.9 degrees with O2 saturations 92 to 94 percent on 2 L nasal cannula. HEENT: Pupils equal, round, react to light. EOMs are intact. Sclerae anicteric. Head is normocephalic, atraumatic. Mucous membranes are moist. Neck: Supple, trachea midline. Cardiovascular: Regular rate and rhythm. S1, S2 appreciated. No murmur. Peripheral pulses are palpable x4 extremities. Pulmonary: Breath sounds are clear with no increased work of breathing noted. Chest rise fall symmetric respiration. Chest wall is nontender to palpation . Gastrointestinal: Abdomen soft, nontender, nondistended with bowel sounds in all 4 quadrants. Skin is warm and dry with bilateral lower extremity venous stasis changes. IMPRESSION & PLAN: This is an 88-year-old female with 1. Delirium which is improved. 2. Obstructive sleep apnea in a patient who continues to refuse to wear CPAP or BiPAP. 3. Diastolic dysfunction with diastolic heart failure. Cardiology is following. 4. 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 Continue with supplemental oxygen. Dictated by EDWIN Lunsford for Asher Hopson MD cc: EDWIN Lunsford MD [facility]
[2019-04-13] MEDS: COUMADIN PO SCH (21:41)
[2019-04-14] MEDS: DUONEB (A & A) INH SCH ×6 (03:31→22:41)
[2019-04-14] MEDS: PERCOCET-5 PO PRN ×2 (05:57→20:13)
[2019-04-14] MEDS: LASIX IV SCH ×2 (05:57→17:46)
[2019-04-14 07:39] LABS: INR 1.68; PROTIME 20.2 Seconds (11.0-16.0)
[2019-04-14 08:11] LABS: CALCIUM 10.1 mg/dL (8.8-10.2); CREATININE 1.3 mg/dL (0.5-0.9); POTASSIUM 4.4 mmol/L (3.5-5.1)
[2019-04-14] MEDS: LIPITOR PO SCH (08:38)
[2019-04-14] MEDS: ZYLOPRIM PO SCH (08:38)
[2019-04-14] MEDS: XANAX PO SCH ×3 (08:38→20:13)
[2019-04-14] MEDS: NEURONTIN PO SCH ×2 (08:38→20:13)
[2019-04-14] MEDS: CARDIZEM CD PO SCH (08:38)
[2019-04-14] MEDS: CYMBALTA PO SCH (08:38)
[2019-04-14] MEDS: ASPIRIN EC PO SCH (08:38)
[2019-04-14] MEDS: LANOXIN PO SCH (08:38)
--- NOTE | 2019-04-14 14:09 | PULMONOLOGY PROGRESS NOTE ---
DATE: 04/14/2019 SUBJECTIVE: Ms. Saeed states that she is doing well. She denies any complaints. She states that she is breathing better. OBJECTIVE: Vital Signs: Blood pressure is 153/49, with a heart rate of 71, respirations are 16, temperature is 98.4 degrees, O2 saturation is 96% to 100% on 2 L nasal cannula. HEENT: Pupils are equal, round, react to light. EOMs are intact. Sclerae are anicteric. Head is normocephalic, atraumatic. Mucous membranes are moist. Neck: Supple with trachea midline. Cardiovascular: Irregularly irregular rhythm. No murmur. She has bilateral lower extremity edema with chronic venous stasis changes. Calves are nontender bilaterally. Pulmonary: Breath sounds with some scattered wheezes throughout. Chest rises and falls symmetric with respiration. No increased work of breathing noted. Gastrointestinal: Abdomen is soft, nontender, nondistended with bowel sounds in all 4 quadrants. Neurologic: She is awake and alert. LABORATORY DATA: INR is 1.68. Sodium 144, potassium 4.4, BUN 28, creatinine 1.3, with a glucose of 224. IMPRESSION & PLAN: This is an 88-year-old female with: 1. Delirium, which is improved. 2. Obstructive sleep apnea in a patient who continues to refuse to wear continuous positive airway pressure or bilevel positive airway pressure. 3. Diastolic dysfunction with diastolic heart failure, followed by Cardiology. 4. 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 continue with supplemental oxygen as well as bronchodilators. 5. Chronic atrial fibrillation. Rate is controlled. She is on chronic anticoagulation. Dictated by EDWIN Lunsford for Asher Hopson MD cc: EDWIN Lunsford MD [facility]
--- NOTE | 2019-04-14 15:11 | PROGRESS NOTE ---
DATE: 04/14/2019 SUBJECTIVE: Ms. Saeed is breathing better, feels better. She was eating her breakfast. OBJECTIVE: Vital Signs: She remains afebrile, temperature 98.4 degrees, pulse 66, respirations 18, blood pressure 145/52. HEENT: Pupils are equal and round. Lungs: Clear in all lung gilbert. Cardiovascular: Regular rhythm and rate without murmur or S3. Abdomen: Soft. Skin: Warm and dry. Physical Therapy: She has not really stood up or walked any, so I want to see how she does before she goes home. Her urine output is 1200 mL. ASSESSMENT AND PLAN: 1. Delirium, which is improved. 2. Obstructive sleep apnea. The patient continues to refuse or wear continuous positive airway pressure. 3. Diastolic dysfunction, diastolic heart failure. 4. Chronic hypercapnia, chronic hypoxemic respiratory failure. Continue supplemental oxygen. 5. Chronic atrial fibrillation. Rate is controlled. She does have a history of coronary artery disease and stage 3 chronic kidney disease, obstructive sleep apnea, chronic obstructive pulmonary disease, congestive heart failure, hypertension. REVIEW OF ORDERS: I do not see any change. REVIEW OF LAB: Today, sodium 144, potassium 4.4, chloride 96, BUN 28, creatinine 1.3. cc: Fredy Foote MD
[2019-04-14] MEDS: COUMADIN PO SCH (20:13)
[2019-04-15] MEDS: DUONEB (A & A) INH SCH ×6 (03:14→23:29)
[2019-04-15] MEDS: LASIX IV SCH ×2 (05:17→17:12)
[2019-04-15] MEDS: PERCOCET-5 PO PRN ×2 (05:19→14:17)
[2019-04-15] MEDS: LIPITOR PO SCH (08:22)
[2019-04-15] MEDS: CYMBALTA PO SCH (08:22)
[2019-04-15] MEDS: LANOXIN PO SCH (08:22)
[2019-04-15] MEDS: ASPIRIN EC PO SCH (08:22)
[2019-04-15] MEDS: CARDIZEM CD PO SCH (08:22)
[2019-04-15] MEDS: NEURONTIN PO SCH ×2 (08:22→23:55)
[2019-04-15] MEDS: ZYLOPRIM PO SCH (08:23)
[2019-04-15] MEDS: XANAX PO SCH ×3 (08:23→23:56)
[2019-04-15 08:24] LABS: INR 2.06; PROTIME 23.7 Seconds (11.0-16.0)
--- NOTE | 2019-04-15 14:23 | PROGRESS NOTE ---
DATE: 04/15/2019 SUBJECTIVE: Ms. Saeed says she wants to go home today. She is breathing better, but I do not know that she has ambulated. She think she can walk with a walker, but she has not done it yet. She wants to go home and would like to go home this afternoon. She wants to talk it over with her son. I told her my concerns about not being able to walk or stand. I want her to be able to ambulate. OBJECTIVE: Temp 97.6 degrees, pulse 86, respirations 16, blood pressure 146/48. HEENT: Pupils are equal and round. Lungs: Clear in all lung gilbert. Cardiovascular: Regular rhythm and rate without murmur or S3. Urine output is 550 mL. ASSESSMENT AND PLAN: 1. Delirium which is improved. 2. Obstructive sleep apnea. Continue to encourage her to use her continuous positive airway pressure. She does not like to wear it. 3. Diastolic dysfunction, diastolic heart failure. Better compensation. 4. Hypercapnia, chronic hypoxemic respiratory failure. Continue supplemental oxygen. She has done better. Her air and gas exchange is markedly improved. 5. Chronic atrial fibrillation. Rate is controlled. 6. General weakness. Really have not done much in the way of ambulating, physical therapy note. So I guess the plan is to try and get her home with [facility]. I will talk to her later this afternoon. cc: Fredy Foote MD
[2019-04-15] MEDS: COUMADIN PO SCH (23:29)
[2019-04-15] MEDS: TYLENOL PO PRN (23:56)
[2019-04-16] MEDS: DUONEB (A & A) INH SCH ×6 (05:06→23:30)
--- NOTE | 2019-04-16 05:42 | Diag Imaging Result Doc PS360 ---
EXAM: CHEST-PORTABLE HISTORY: abnormal exam TECHNIQUE: Single view COMPARISON: 04/08/2019 FINDINGS: Poor inspiratory effort. The heart is enlarged. There is vascular distention. This is similar to the prior study. Questionable trace pleural fluid. Left pacemaker is unchanged. IMPRESSION: Poor inspiratory effort with no significant change. Electronically signed by Yovani Lambert 04/16/2019 5:40 AM
[2019-04-16] MEDS: PERCOCET-5 PO PRN ×3 (05:43→22:04)
[2019-04-16] MEDS: LASIX IV SCH ×2 (06:55→17:52)
--- NOTE | 2019-04-16 07:04 | PULMONOLOGY PROGRESS NOTE ---
DATE: 04/15/2019 SUBJECTIVE: The patient is awake, alert, and conversant. She reports she is ready to leave the hospital. She refuses to wear any BiPAP or CPAP device. OBJECTIVE: Vital Signs: The patient has been afebrile for the last 24 hours. Blood pressure 138/46, heart rate 63, respiratory rate 16, oxygen saturation 95% on 3 liters per nasal cannula. HEENT: Pupils are equal and reactive. Oropharynx appears clear. Neck: Supple. Chest: Reveals crackles in both lung bases. Cardiac: S1 and S2. Abdomen: Obese and soft. Extremities: Reveal decreased edema. LABORATORIES: Sodium 144, potassium 4.4, chloride 96, bicarbonate 29, BUN 28, creatinine 1.3. IMPRESSION: 1. An 88-year-old with obstructive sleep apnea with noncompliance to CPAP device. 2. 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 3. Diastolic dysfunction with diastolic heart failure. 4. Delirium. DISCUSSION: An 88-year-old with problems outlined above. She appears to be reaching her maximum benefit from this hospital stay. She refuses CPAP and BiPAP, and this has been documented. PLAN: 1. Continue supplemental oxygen. 2. Minimize sedatives and pain medications which likely led to her delirium. 3. Followup chest x-ray tomorrow. cc: Asher Hopson MD
[2019-04-16 07:43] LABS: INR 2.45; PROTIME 27.2 Seconds (11.0-16.0)
[2019-04-16] MEDS: ASPIRIN EC PO SCH (08:34)
[2019-04-16] MEDS: CYMBALTA PO SCH (08:34)
[2019-04-16] MEDS: CARDIZEM CD PO SCH (08:34)
[2019-04-16] MEDS: NEURONTIN PO SCH ×2 (08:35→21:07)
[2019-04-16] MEDS: ZYLOPRIM PO SCH (08:35)
[2019-04-16] MEDS: LIPITOR PO SCH (08:35)
[2019-04-16] MEDS: XANAX PO SCH ×3 (08:35→21:06)
[2019-04-16] MEDS: DULCOLAX PR SCH ×2 (15:25→21:07)
[2019-04-16] MEDS: MIRALAX PO SCH ×2 (15:25→21:06)
--- NOTE | 2019-04-16 15:43 | PROGRESS NOTE ---
DATE: 04/16/2019 SUBJECTIVE: The patient is sitting at the bedside. She is still complaining of some shortness of breath, but she is feeling better compared with admission. Apparently, she had some delirium. That is improved. She is on home O2 around 2 L. We will get a new chest x-ray tomorrow. She is getting Lasix twice a day. INR is therapeutic. Probably this patient will be discharged tomorrow. I will follow the recommendations of Pulmonary Department. OBJECTIVE: Vital Signs: Temperature 99.2 degrees, pulse 73, respiratory rate 18, blood pressure 138/51, oxygen saturation 94% on 3 L of nasal cannula. HEENT: Head normocephalic. No trauma. PERRLA. Neck: Supple. No JVD. Central trachea. Chest: Decreased breath sounds globally with probably some crepitus at the bases. Abdomen: Soft. Protuberant. She is distended. Slightly tympanic to percussion. She is not complaining of pain but no bowel movements for at least one week. Extremities: Chronic changes, venous stasis at the level of the lower extremities. Her edema apparently has been decreasing, trace to 1+. Neurological: Patient is awake. She is alert. She is following commands. LABORATORY: PT 27.2. INR 2.45. ASSESSMENT AND PLAN: 1. Chronic hypoxemic and hypercarbic respiratory failure in a patient with a history of obstructive sleep apnea with noncompliance to CPAP machine. We had a large conversation about this with the patient. She seems to understand, but I am not quite sure if she is going to continue with that home. She is on home O2 as well. Her daughter is at the bedside. 2. Delirium, improved. 3. Permanent atrial fibrillation. Continue with the same medications. She is on anticoagulation, rate controlled. 4. Status post pacemaker placement. Aware. 5. Chronic diastolic heart failure. Continue with the same management. Continue with intravenous Lasix for now. 6. History of moderate coronary artery disease. Aware. We will monitor. 7. Chronic kidney disease, stable. This is her baseline. I will get a new kidney function tomorrow. 8. Morbid obesity with a body mass index of 44.4. 9. 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 Aware. 10. Physical deconditioning and generalized weakness. I asked the patient to walk a little bit more. She wants to go to her house. I do not think she wants to go to a rehab center. I will continue with physical therapy here. 11. Constipation. I will put this patient on MiraLAX orally and Dulcolax suppository. cc: Eleazar Tucker MD MTDD
[2019-04-16] MEDS: COUMADIN PO SCH (21:07)
--- NOTE | 2019-04-16 21:59 | PULMONOLOGY PROGRESS NOTE ---
DATE: 04/16/2019 SUBJECTIVE: The patient is awake, alert, and conversant. She is without specific complaints. OBJECTIVE: Vital Signs: The patient has been afebrile for the last 24 hours. Blood pressure 153/57, heart rate 71, respiratory rate 20, oxygen saturation 98%. HEENT: Pupils are equal. Oropharynx appears clear. Neck: Is supple. Chest: Reveals shallow breath sounds bilaterally with faint crackles in the bases. Cardiac exam: S1-S2. Abdomen: Is soft and obese. Extremities: Are without edema. LABORATORIES: No new CBC, arterial blood gas or chemistries. Chest x-ray reveals shallow inspiration with vascular congestion. IMPRESSION: An 88-year-old with 1. Chronic obstructive pulmonary disease. Patient refuses BiPAP and CPAP. 2. Hypoxemic and hypercapnic respiratory failure. 3. Diastolic dysfunction with heart failure. 4. Delirium, likely related to multiple neurotrophic medications. PLAN: 1. Continue supplemental oxygen. 2. Anticipate discharge home soon. The patient has reached her maximum hospitalization benefits. cc: Asher Hopson MD
[2019-04-17] MEDS: DUONEB (A & A) INH SCH ×3 (03:56→13:39)
[2019-04-17] MEDS: LASIX IV SCH (05:02)
[2019-04-17] MEDS: PERCOCET-5 PO PRN ×2 (06:15→15:07)
--- NOTE | 2019-04-17 07:12 | Diag Imaging Result Doc PS360 ---
EXAM: CHEST-PORTABLE 04/17/2019 HISTORY: dyspnea TECHNIQUE: AP portable at 0543 COMMENT: The inspiration is slightly better than on 04/16/2019. There is borderline cardiomegaly. The left costophrenic angle region is opacified. There may be generalized interstitial pulmonary edema. IMPRESSION: Cardiomegaly and minimal pulmonary edema. Electronically signed by Ernesto Johnston 04/17/2019 7:10 AM
[2019-04-17 07:13] LABS: HEMATOCRIT 35.7 % (37.0-47.0); HEMOGLOBIN 10.6 g/dL (12.0-16.0); MCH 28.8 PG (27-31); MCHC 29.7 g/dL (33-37); MPV 9.9 FL (7.4-10.4); RBC 3.68 XMIL (4.2-5.4); RDW 17.4 % (11.5-14.5); WBC 7.03 X1000 (4.8-10.8)
[2019-04-17 07:21] LABS: INR 2.54
[2019-04-17 07:52] LABS: CALCIUM 9.9 mg/dL (8.8-10.2); CREATININE 1.2 mg/dL (0.5-0.9); MAGNESIUM 1.9 mg/dL (1.5-2.7); PHOSPHORUS 2.4 mg/dL (2.7-4.5); POTASSIUM 3.3 mmol/L (3.5-5.1)
[2019-04-17] MEDS ORDERED: DUONEB (A & A) ONE (08:05)
[2019-04-17] MEDS ORDERED: POTASSIUM PHOSPHATE 15 MMOL in NS 250 ML IV ONE (09:38)
[2019-04-17] MEDS: LIPITOR PO SCH (10:03)
[2019-04-17] MEDS: CYMBALTA PO SCH (10:03)
[2019-04-17] MEDS: DULCOLAX PR SCH (10:03)
[2019-04-17] MEDS: XANAX PO SCH (10:03)
[2019-04-17] MEDS: ASPIRIN EC PO SCH (10:03)
[2019-04-17] MEDS: NEURONTIN PO SCH (10:03)
[2019-04-17] MEDS: LANOXIN PO SCH (10:04)
[2019-04-17] MEDS: MIRALAX PO SCH (10:04)
[2019-04-17] MEDS: ZYLOPRIM PO SCH (10:05)
[2019-04-17] MEDS: CARDIZEM CD PO SCH (10:05)
[2019-04-17] MEDS ORDERED: NS 500 ML ONE (10:51)
[2019-04-17 13:16] VITALS: BP 143/76
--- NOTE | 2019-04-18 09:42 | DISCHARGE SUMMARY ---
ADMISSION DATE: 04/09/2019 DISCHARGE DATE: 04/17/2019 DISCHARGE DIAGNOSES: 1. Chronic hypoxemic and hypercarbic respiratory failure in a patient with a history of obstructive sleep apnea with noncompliance to CPAP machine. 2. Delirium, improved. 3. Permanent atrial fibrillation. 4. Status post pacemaker placement. 5. Chronic diastolic heart failure. 6. History of moderate coronary artery disease. 7. Chronic kidney disease. 8. Morbid obesity with a body mass index of 44.4. 9. 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 10. Constipation. 11. Generalized weakness. PROCEDURES PERFORMED: 1. Chest x-ray dated 04/08/2019, the impression was cardiomegaly with mild pulmonary edema and a small left pleural effusion. 2. Extremity venous study dated 04/09/2019, the interpretation was no DVT or SVT of either lower extremity. 3. Chest x-ray dated 04/16/2019, the impression was poor inspiration effort with no significant change. 4. Chest x-ray dated 04/17/2019, the impression was cardiomegaly with minimal pulmonary edema. HOSPITAL COURSE: An 88-year-old female with a past medical history of coronary artery disease, atrial fibrillation, CKD, COPD, CHF and hypertension who presented to the emergency department, was admitted on 04/09/2019. Apparently, she was combative, confused, and somewhat short of breath. She was admitted apparently to [facility] several weeks ago with similar complaints. She was seen in the ER and she was found to be in heart failure, also somewhat hypercapnic. She was placed on supplemental oxygen and given diuresis with Lasix. She was admitted on 04/09/2019. However, she required admission for further management. At the moment of the admitting physician, the patient denied any headache, fever, chills, chest pain, weight changes, and she was feeling better, but she was confused. She was placed on most of her home medications, and also Cardiology Department was consulted who recommended to keep Lasix 80 mg twice a day and follow an echocardiogram and ultrasound of the legs. The ultrasounds were negative for a DVT, and she was basically placed on 80 IV of Lasix twice a day, and at the end we have a total negative balance of 3 liters, but her confusion improved, as well as the pulmonary edema, which is much better. She has not been compliant with the CPAP machine or BiPAP machine device. Diastolic dysfunction and diastolic heart failure, Pulmonary Department also evaluated this patient due to her chronic hypercarbic and hypoxemic respiratory failure. The patient has been improving on a daily basis. We believe she reached her maximum hospitalization benefit during these days. She is being discharged today. She will continue with home oxygen. Chest x- ray looks better. She is completely awake, alert, and oriented x3. She does have generalized weakness, but she refused to go to a rehab center. She will go home with home health. PHYSICAL EXAMINATION: Vital Signs: Temperature 96, pulse 76, respiratory rate 19, blood pressure 143/76, and oxygen saturation 96 on 3 liters of nasal cannula. HEENT: Head normocephalic, no trauma. PERRLA. Neck: Supple. No JVD. No masses. Central trachea. Chest: Decreased breath sounds mostly at the bases with some crepitus at the bases. Abdomen: Soft, protuberant. She is slightly distended. She is not complaining of pain. Bowel sounds present. Extremities: She has venous stasis at the level of the lower extremities which is chronic. Trace edema. Neurological: The patient is awake. She is alert. She is following commands. LABORATORY: WBC 7, hemoglobin 10.6, hematocrit 35.7, platelets 169,000. INR 2.5. Sodium 138, potassium 3.3, chloride 92, bicarbonate 35, BUN 26, creatinine 1.2, glucose 216, calcium 9.9, phosphorus 2.4, magnesium 1.9. DISCHARGE MEDICATIONS: Allopurinol 300 mg p.o. daily, alprazolam 0.25 mg p.o. t.i.d., aspirin 81 mg p.o. daily, Lipitor 40 mg p.o. daily, Dulcolax 10 mg per rectal/suppository every night at bedtime, digoxin 125 mcg p.o. as directed, diltiazem 120 mg p.o. daily, duloxetine 40 mg p.o. daily, Lasix 40 mg p.o. b.i.d., gabapentin 300 mg p.o. b.i.d., [place] 10 mg every 8 hours as needed, MiraLAX 17 grams p.o. b.i.d., and warfarin 4 mg p.o. daily. TIME SPENT: The time spent discharging this patient was 35 minutes. cc: Eleazar Tucker MD
== END 2019-04-17 16:10 | disposition home health service (06) | DRG 291 ==
LOC: ED 21:13 → SUATTDRO 04-09 01:00 → EDIPHOLD 04-09 01:00 → 4N 04-09 10:31
PROVIDERS: ATTEND Internal Medicine